=== PATIENT | female | born 1940 | race Caucasian/White ===

== ENCOUNTER 2018-11-24 04:15 | Inpatient (IN) ==
[2018-11-24] MEDS ORDERED: ALBUTEROL NEB INH ONE (04:50)
[2018-11-24] MEDS ORDERED: DUONEB (A & A) INH ONE (04:50)
[2018-11-24] MEDS ORDERED: LEVAQUIN 750 MG/D5W 750 MG/150 ML IVPB IV ONE (05:03)
[2018-11-24] MEDS ORDERED: ZOSYN 3.375 GM in NS 50 ML IV ONE (05:03)
[2018-11-24] MEDS ORDERED: TYLENOL PO ONE (05:04)
[2018-11-24] MEDS ORDERED: SOLU-MEDROL IV ONE (05:04)
[2018-11-24 05:21] LABS: BASO# 0.04 X1000 (0.0-0.2); BASO% 0.1 % (0.0-0.8); HEMATOCRIT 29.2 % (37.0-47.0); HEMOGLOBIN 9.7 g/dL (12.0-16.0); IMM GRAN# 0.29 X1000 (0.0-0.04); IMM GRAN% 1.1 % (0.0-0.5); LYMPH# 0.66 X1000 (1.2-3.4); LYMPH% 2.5 % (20.5-51.1); MCH 29.5 PG (27-31); MCHC 33.2 g/dL (33-37); MCV 88.8 FL (81-99); MONO# 1.01 X1000 (0.11-0.59); MONO% 3.8 % (1.7-9.3); MPV 11.3 FL (7.4-10.4); NEUT# 24.75 X1000 (1.4-6.5); NEUT% 92.5 % (42.2-75.2); PLT 304 X1000 (130-400); RBC 3.29 XMIL (4.2-5.4); RDW 16.8 % (11.5-14.5); WBC 26.75 X1000 (4.8-10.8)
[2018-11-24 05:25] LABS: BLOOD TYPE ARTERIAL; SAMPLE BLOOD
[2018-11-24 05:26] LABS: ALLEN TEST YES; BE -2.7 mmoll (-3.0-3.0); HCO3-(ACT) 22.8 mmoll (20.0-26.0); METHB 1.2 % (0.0-1.5); O2(CT) 13.4 mL/dL (15.0-23.0); O2HB 96.7 % (95.0-99.0); PCO2(98.6) 26 mmHg (35-45); PO2(98.6) 143 mmHg (60-100); SAO2 99.6 % (95.0-100.0); THB 9.6 g/dL (11.5-17.4); pH(98.6) 7.49 (7.35-7.45)
[2018-11-24 05:28] LABS: MODALITY CANNULA
[2018-11-24 05:30] LABS: INR 1.23; PROTIME 16.5 Seconds (11.0-16.0)
[2018-11-24 05:31] LABS: PTT 30.8 Seconds (22.3-41.8)
[2018-11-24 05:35] LABS: ALB/GLOB RATIO 0.7; ALBUMIN 3.2 g/dL (3.5-5.0); CALCIUM 9.6 mg/dL (8.8-10.2); CREATININE 2.3 mg/dL (0.5-0.9); POTASSIUM 4.9 mmol/L (3.5-5.1); TOTAL BILIRUBIN 0.55 mg/dL (0.20-1.00); TOTAL PROTEIN 7.5 g/dL (6.3-8.3)
--- NOTE | 2018-11-24 06:15 | Diag Imaging Result Doc PS360 ---
EXAM: CHEST-PORTABLE HISTORY: SOB TECHNIQUE: Portable chest single view COMPARISON: 08/17/2018 FINDINGS: The lungs are well expanded. There are dense infiltrates in the mid and lower right lung with smaller infiltrates in the left lower lung. The heart is not enlarged. No pleural effusions identified. Mild vascular distention. IMPRESSION: . Findings suspicious for pneumonia with pulmonary edema Electronically signed by Anuel Phillips 11/24/2018 6:12 AM
--- NOTE | 2018-11-24 07:26 | PROVIDER DOCUMENTATION ---
HPI-General Adult - General Chief Complaint: Shortness of Breath Stated Complaint: SOB/CHEST PAIN Time Seen by Provider: 11/24/18 04:26 Source: patient, family Allergies/Adverse Reactions: Patient Allergies Allergy/AdvReac Type Severity Reaction Status Date / Time codeine [Codeine] AdvReac Mild "MAKES ME Verified 11/24/18 05:08 HYPER" Home Medications: Home Medication List Medication Instructions Recorded Confirmed Last Taken Type Tiotropium Sevier Inhaler 1 puff INH RTDAILY 07/11/13 11/24/18 07/30/18 History [Spiriva] Benzonatate 1 cap PO Q6H PRN 06/25/18 11/24/18 Unknown History Fluticasone/Salmet 250/50 INH 1 puff INH BID 06/25/18 11/24/18 07/30/18 History [Advair 250/50 Diskus] Losartan/Hydrochlorothiazide 1 tab PO DAILY 06/25/18 11/24/18 07/29/18 History [Losartan-Hctz 100-25 mg Tab] Cholecalciferol (Vit D3) [Vitamin 2,000 unit PO DAILY 07/28/18 11/24/18 Unknown History D] Mv-Min/Iron/Folic/Calcium/Vitk 1 tab PO DAILY 07/28/18 11/24/18 07/29/18 History [Women's Daily Formula Tablet] Guaifenesin E.r. [Mucinex] 600 mg PO DAILY PRN PRN 11/24/18 11/24/18 Unknown History Ipratropium Sevier Inhaler 2 puff INH Q6H PRN PRN 11/24/18 11/24/18 Unknown History [Atrovent Hfa] Loratadine [Claritin] 10 mg PO DAILY 11/24/18 11/24/18 Unknown History Tizanidine [Zanaflex] 4 mg PO Q8HR 11/24/18 11/24/18 Unknown History Trazodone HCl 50 mg PO HS 11/24/18 11/24/18 Unknown History - History of Present Illness -Gen Adult Nature of Presenting Problems: Pt arrived in moderate respiratory distress after coughing and being short of breath x 2 days. Symptoms have gradually worsened. She states being around a sick family member over Mian. She has diffuse discomfort of her chest and back. No substernal CP. She states having fever yesterday, she guesses 102-103. She has had multiple bouts of pna in the past year. She states previously she had strep pna and has been hospitalized for this. She also states a history of bronchiectasis. She has used inhaled bronchodilators with no relief. Review of Systems - Adult - REVIEW OF SYSTEMS - ADULT Constitutional: reports: see HPI, chills, fever, fatique, night sweats Eyes: reports: no symptoms reported Ears, Nose, Mouth & Throat: reports: no symptoms reported Cardiovascular: reports: no symptoms reported Respiratory: reports: see HPI Gastrointestinal: reports: no symptoms reported, see HPI Genitourinary: reports: no symptoms reported Musculoskeletal: reports: no symptoms reported Integumentary: reports: no symptoms reported Neurological: reports: no symptoms reported Psychiatric: reports: no symptoms reported Endocrine: reports: no symptoms reported Hematologic/Lymphatic: reports: no symptoms reported Allergic/Immunologic: reports: no symptoms reported Past History - Adult - PAST MEDICAL HISTORY-ADULT Review of Records: reports: Old Records Reviewed, Nursing Assessment Review, Medications Reviewed Major Childhood Illnesses: reports: denies history Cardiovascular: reports: HTN Respiratory: reports: COPD, pneumonia, other (bronchiectasis) Gastrointestinal: reports: GERD Obstetrical/Gynecological: reports: denies history Genitourinary: reports: denies history Musculoskeletal: reports: denies history Neurological: reports: denies history Psychiatric: reports: denies history Endocrine/Immune: reports: denies history Other Conditions: reports: denies history - PRIOR SURGERIES/PROCEDURES Surgical/Procedure History: reports: reviewed, not pertinent, BTL - PRIOR HOSPITALIZATIONS Prior Hospitalizations: reports: none - IMMUNIZATION STATUS Childhood Immunizations: UTD Flu Vaccine: UTD - FAMILY HISTORY Family History: reviewed, not pertinent Physical Exam-General - PHYSICAL EXAM-ADULT Initial Vital Signs Reviewed: Yes - CONSTITUTIONAL General Appearance: alert, moderate distress, other (pale appearing.) - EYES Eyes: PERRL/EOMI - HEAD, EARS, NOSE, MOUTH & THROAT HENMT: normocephalic/atraumatic, moist mucous membranes, normal ENT inspection, pharynx normal - NECK Neck: non-tender, full range of motion, supple, normal inspection - RESPIRATORY Respiratory: respiratory distress (moderate with subcostal retractions. tachypeic. Diminished R.) - CARDIOVASCULAR Cardiovascular: normal peripheral pulses, no JVD, tachycardia Progress - PLAN OF CARE/RESULTS Progress/Plan/Lab Results: Vital Signs - 8 hr 11/24/18 04:19 11/24/18 04:57 11/24/18 05:32 Temperature 98.4 F Pulse Rate 125 H 122 H 122 H Respiratory Rate 24 26 H 33 H Blood Pressure 102/54 80/56 O2 Sat by Pulse Oximetry 87 L 97 97 11/24/18 05:33 11/24/18 05:34 11/24/18 05:40 Temperature Pulse Rate 110 H 119 H 115 H Respiratory Rate 33 H 34 H 27 H Blood Pressure 111/54 O2 Sat by Pulse Oximetry 97 97 97 11/24/18 05:50 11/24/18 06:00 11/24/18 06:01 Temperature Pulse Rate 118 H 114 H 114 H Respiratory Rate 27 H 30 H 33 H Blood Pressure 100/53 O2 Sat by Pulse Oximetry 98 97 96 11/24/18 06:10 Temperature Pulse Rate 108 H Respiratory Rate 31 H Blood Pressure O2 Sat by Pulse Oximetry 96 11/24/18 05:30 Influenza Screen - Final Nasopharyngeal Laboratory Results - last 24 hr 11/24/18 11/24/18 11/24/18 04:48 04:48 04:48 WBC 26.75 H RBC 3.29 L Hgb 9.7 L Hct 29.2 L MCV 88.8 MCH 29.5 MCHC 33.2 RDW Std Deviation 16.8 H Plt Count 304 MPV 11.3 H Immature Gran % (Auto) 1.1 H Neut % (Auto) 92.5 H Lymph % (Auto) 2.5 L [place] % (Auto) 3.8 Eos % (Auto) 0.0 Baso % (Auto) 0.1 Immature Gran # (Auto) 0.29 H Neut # (Auto) 24.75 H Lymph # (Auto) 0.66 L [place] # (Auto) 1.01 H Eos # (Auto) 0.00 Baso # (Auto) 0.04 PT INR PTT (Actin FS) Specimen Type Sample Site pH pCO2 pO2 HCO3 Base Excess Oxyhemoglobin ABG O2 Sat (Calculated) ABG O2 Saturation ABG Carboxyhemoglobin ABG Methemoglobin Ash Test A-a O2 Difference Total Hemoglobin Lactate Liter Flow Blood Gas Modality FiO2 % Sodium 135 L Potassium 4.9 Chloride 97 L Carbon Dioxide 20 L Anion Gap 18 BUN 67 H Creatinine 2.3 H Estimated GFR/1.73 m2 21 BUN/Creatinine Ratio 29 Glucose 127 H Calculated Osmolality 291 Calcium 9.6 Total Bilirubin 0.55 AST 19 ALT 16 Alkaline Phosphatase 91 Creatine Kinase 32 Troponin T Vpa-R-Uqozqwhlxvo Pept 17050 H Total Protein 7.5 Albumin 3.2 L Globulin 4.3 Albumin/Globulin Ratio 0.7 11/24/18 11/24/18 11/24/18 04:48 04:48 05:17 WBC RBC Hgb Hct MCV MCH MCHC RDW Std Deviation Plt Count MPV Immature Gran % (Auto) Neut % (Auto) Lymph % (Auto) [place] % (Auto) Eos % (Auto) Baso % (Auto) Immature Gran # (Auto) Neut # (Auto) Lymph # (Auto) [place] # (Auto) Eos # (Auto) Baso # (Auto) PT 16.5 H INR 1.23 PTT (Actin FS) 30.8 Specimen Type ARTERIAL Sample Site R RADIAL pH 7.49 H pCO2 26 L pO2 143 H HCO3 22.8 Base Excess -2.7 Oxyhemoglobin 96.7 ABG O2 Sat (Calculated) 13.4 L ABG O2 Saturation 99.6 ABG Carboxyhemoglobin 1.80 ABG Methemoglobin 1.2 Ash Test YES A-a O2 Difference 53.0 Total Hemoglobin 9.6 L Lactate 1.00 Liter Flow 4.0 Blood Gas Modality CANNULA FiO2 % 32.0 Sodium Potassium Chloride Carbon Dioxide Anion Gap BUN Creatinine Estimated GFR/1.73 m2 BUN/Creatinine Ratio Glucose Calculated Osmolality Calcium Total Bilirubin AST ALT Alkaline Phosphatase Creatine Kinase Troponin T 0.151 H Rwc-Y-Rguitdtevor Pept Total Protein Albumin Globulin Albumin/Globulin Ratio Orders Category Date Time Status Cardiac Monitoring DIRECTED Care 11/24/18 04:30 Active Oxygen Therapy- ED Nursing DIRECTED Care 11/24/18 04:30 Active Saline Loc NOW Care 11/24/18 04:30 Active CHEST-PORTABLE [RAD] Stat Exams 11/24/18 04:30 Completed ABG [RESP] Routine Lab 11/24/18 05:17 Completed BLOOD CULTURE [BLDCUL] Stat Lab 11/24/18 04:56 Results CBC WITH ELECTRONIC DIFF [HEME] Stat Lab 11/24/18 04:48 Completed CK PROFILE [SP CHEM] Stat Lab 11/24/18 04:48 Completed COMPREHENSIVE METABOLIC PANEL [CHEM] Stat Lab 11/24/18 04:48 Completed INFLUENZA SCREEN A/B Stat Lab 11/24/18 05:30 Completed LACTATE, PLASMA [CHEM] Stat Lab 11/24/18 04:48 Received PRO B-NATRIURETIC PEPTIDE Stat Lab 11/24/18 04:48 Completed PROTIME WITH INR [COAG] Stat Lab 11/24/18 04:48 Completed PTT [COAG] Stat Lab 11/24/18 04:48 Completed TROPONIN T Stat Lab 11/24/18 04:48 Completed Acetaminophen [Tylenol] Med 11/24/18 05:04 Discontinued 1,000 mg PO NOW ONE Albuterol 2.5MG/Ipratrop 0.5MG [Duoneb (A & A)] Med 11/24/18 04:50 Discontinued 3 ml INH NOW ONE Albuterol [Albuterol Neb] Med 11/24/18 04:50 Discontinued 2.5 mg INH NOW ONE Levofloxacin 750 mg/D5w [Levaquin 750 mg/D5w] Med 11/24/18 05:03 Discontinued 750 mg in 150 ml IV NOW Methylprednisolone Sod Succ [Solu-Medrol] Med 11/24/18 05:04 Discontinued 125 mg IV NOW ONE Piperacillin/Tazobactam [Zosyn] 3.375 gm Med 11/24/18 05:03 Discontinued 0.9% Sodium Chloride Inj [Ns] 50 ml IV NOW Aerosol Treatments Routine Oth 11/24/18 04:50 Completed Aerosol Treatments Stat Oth 11/24/18 04:50 Completed CP/SOB/Palp >45 yrs of Age Stat Oth 11/24/18 04:29 Ordered EKG [EKG] Stat Ther 11/24/18 04:30 Ordered Case discussed with Dr Galvin who will admit her. She has a large R infiltrate as well as pulmonary edema. Treated with Zosyn and Levaquin. Admitted to ICU to hospitalist service. Result Diagrams: 11/24/18 04:48 11/24/18 04:48 Departure - Departure Date of Disposition Decision: 11/24/18 Time of Disposition Decision: 06:10 DIAGNOSIS: Pneumonia Qualifiers: Pneumonia type: due to unspecified organism Laterality: bilateral Lung location : unspecified part of lung Qualified Code(s): J18.9 - Pneumonia, unspecified organism Pulmonary edema Qualifiers: Chronicity: acute Qualified Code(s): J81.0 - Acute pulmonary edema Disposition: ADMITTED INPATIENT 09 Certified Medical Emergency: Emergent Condition: Serious - Critical Care Note This patient required my direct & personal management of CC.: Yes Total Time (mins): 31 Critical Care Statement: This patient required my direct personal management to treat or rule out processes, the absence of which, could potentiallly result in sudden, clinically significant life or limb threatening deterioration. Attestation - Physician/ MYRA Attestation The physician spent face to face time with patient:: Yes Advanced Practice Provider documentation review:: Supervising physician onsite and consulted in the evaluation and care of this patient. The physician did have a face to face encounter with the patient.
[2018-11-24] MEDS ORDERED: TYLENOL PO PRN (08:19)
[2018-11-24] MEDS ORDERED: ZANAFLEX PO PRN (08:21)
[2018-11-24] MEDS ORDERED: MUCINEX PO PRN (08:21)
[2018-11-24] MEDS ORDERED: VANCOMYCIN IV PER PHARMACY MISC SCH (08:30)
--- NOTE | 2018-11-24 08:47 | Diag Imaging Result Doc PS360 ---
EXAM: CT THORAX W/O CONTRAST INDICATION: sob; pna TECHNIQUE: This exam was performed using automated exposure control, adjustment of mA or kV according to patient size, and/or use of iterative reconstruction technique. COMPARISON: 06/26/2018 FINDINGS: There is moderate to advanced pulmonary emphysema. There are extensive patchy airspace infiltrates throughout both lungs consistent with pneumonia. It is worst at the lung bases and at the inferior aspect of the right upper lobe. There is also subsegmental atelectasis at the lung bases. No significant pleural effusion is identified. There is no pneumothorax. There are calcified mediastinal and hilar lymph nodes indicating prior granulomatous disease. There are other shotty borderline and mildly prominent mediastinal and hilar lymph nodes that are noncalcified and are essentially stable. There are likely reactive. Limited views of the upper abdomen are essentially unremarkable. IMPRESSION: 1.Emphysema. 2.Bilateral multilobar pneumonia as described. 3.Other external/nonacute findings detailed above. Electronically signed by Michael Bridges 11/24/2018 8:45 AM
[2018-11-24] MEDS ORDERED: VITAMIN D PO SCH (09:00)
--- NOTE | 2018-11-24 09:43 | EKG Report ---
Test Performed on : 11/24/2018 04:29:56 AM Test Reason : SOB Blood Pressure : / mmHG Vent. Rate : 126 BPM Atrial Rate : 125 BPM P-R Int : 000 ms QRS Dur : 082 ms QT Int : 318 ms P-R-T Axes : 000 103 -77 degrees QTc Int : 460 ms Undetermined rhythm Rightward axis Low voltage QRS T wave abnormality, consider inferior ischemia Abnormal ECG When compared with ECG of 30-JUL-2018 10:36, Current undetermined rhythm precludes rhythm comparison, needs review Unconfirmed Result
[2018-11-24] MEDS ORDERED: LASIX IV ONE (09:46)
[2018-11-24 10:08] LABS: HEMOGLOBIN A1C 4.9 % (4.8-6.0)
[2018-11-24] MEDS: XOPENEX NEB INH SCH ×4 (11:05→23:06)
[2018-11-24] MEDS: ATROVENT NEB INH SCH ×4 (11:05→23:06)
[2018-11-24 11:09] LABS: IRON SATURATION 3 %; TIBC 248 ug/dL
[2018-11-24] MEDS: CENTRUM SILVER PO SCH (11:12)
[2018-11-24 11:30] LABS: URINE SOURCE CLEAN CATCH
--- NOTE | 2018-11-24 11:36 | HISTORY AND PHYSICAL ---
PRIMARY CARE PROVIDER: Dr. Kathrin Richards. PRIMARY SWIMMING POOL SERVICER: Dr. Ben Gallardo. PRIMARY ONCOLOGIST: Dr. Mode Zapata. PRIMARY SURFACER OPERATOR: Dr. Livia Morse. PRIMARY ETHYLBENZENE OXIDIZER: 1. Dr. Mark Allen out of [place]. 2. Dr. Kamar Colindres in [place]. CHIEF COMPLAINT: Shortness of breath, cough, chills. HISTORY OF PRESENT ILLNESS: Mrs. Debra Dillon is a 78-year-old, female , with a medical history of frequent pneumonia, COPD, chronic bronchiectasis, borderline multiple myeloma. Starting back in January 2018 she had strep pneumonia and since then she has had pneumonia four times. Today makes her first time for 2019. She presents with complaints of runny nose, fever, chills, cough with yellow phlegm, more fatigued and shortness of breath since Wednesday which was around four days. Last night she started having chest and back pain, but mostly in her back between her shoulders and worse with her coughing. She states that 5 or 6 days ago she was around someone who had been pretty sick with respiratory complaints. She now has imaging that shows she has multilobar pneumonia bilaterally with signs of cor pulmonale. She will be admitted to [facility]. We will consult Pulmonology. We will treat her pneumonia and bronchiectasis. PAST MEDICAL HISTORY: 1. COPD. No home oxygen. 2. Bronchiectasis diagnosed since June 2018. 3. CKD stage III. 4. Frequent pneumonia January 2018. Strep pneumonia with a total of four bouts of pneumonia in 2018. 5. Borderline multiple myeloma. 6. Anemia. 7. Hypertension. 8. Chronic tachycardia. 9. Cor pulmonale, chronic. 10.Hypertriglyceridemia. 11.Hypercholesterolemia. SURGICAL HISTORY: 1. Left wrist ORIF. 2. Left hip and tib/fib pins and rods. 3. Tubal ligation. 4. Bronchoscopy June [address] Allen. 5. EGD. SOCIAL HISTORY: She retired from [employer] or [employer] back in the year 1999. She quit smoking in the year 2000 but prior to that she smoked one pack per day since the age of 21. She drinks 102 glasses of white wine or Chardonnay every day and she has so for many years, even prior to alf. She denies any illicit drug use. She lives with her who is currently at the bedside and is very supportive. FAMILY HISTORY: Mother had asthma and Legionnaires' disease. She also had some sort of cancer, but was unsure of what type. Father, she had no idea. She did have an aunt on her father's side of family that she thinks had pancreatic cancer. ALLERGIES: Codeine. HOME MEDICATIONS: She states she takes Lasix 10 mg p.r.n. when her legs swelling. But that is not listed on her home medications. 1. Zanaflex 4 mg p.o. q.8 hours p.r.n. 2. Benzonatate 200 mg p.o. q.6 hours p.r.n. for cough. 3. Vitamin D3 2000 units p.o. daily. 4. Advair 250 5. Mucinex 600 mg p.o. daily p.r.n. 6. Atrovent two puffs inhaled q.6 hours p.r.n. 7. Losartan/hydrochlorothiazide 100/25 mg one tablet p.o. daily. 8. Multivitamin daily. 9. Spiriva inhaled daily. 10.Trazodone 50 mg p.o. at bedtime p.r.n. for sleep. REVIEW OF SYSTEMS: A 14 point review of systems are complete and negative except for those mentioned above in HPI. Positives are runny nose, subjective fever, chills, cough with yellow phlegm, chest and back pain between the shoulder blades worsened with cough. A 17 pound weight loss since January 2018. Decreased appetite. Shortness of breath. She denies any abdominal pain, nausea or vomiting. She states her bowel movements are normal. PHYSICAL EXAM: VITAL SIGNS: Temperature 98.4 degrees Fahrenheit, heart rate 107, respiratory rate 31, blood pressure 121/75. O2 saturation 98%-99% on 4 L. GENERAL: Mrs. Debra Dillon is a 78-year-old, female. She is in no acute distress. She is able to answers questions appropriately. HEENT: Atraumatic, normocephalic. Pupils are equal, round and reactive to light. Extraocular movements intact. Moist mucous membranes. NECK: Trachea is midline. CARDIOVASCULAR: S1, S2. Tachycardic rate and rhythm. No rubs, gallops or murmurs. No lower extremity edema. Plus-two dorsalis and radial pulses. Negative JVD or carotid bruits. PULMONARY: Coarse throughout. Worse on the right middle lobe area posteriorly. She is coarse anteriorly as well. No accessory muscle use. Mild work of breathing. Tolerating 4 L nasal cannula well. GASTROINTESTINAL: Soft, nontender, nondistended. Positive bowel sounds x4. EXTREMITIES: Moves all extremities equally with full range of motion. NEUROLOGIC: Alert and oriented x3. Follows commands. Sensory is intact. SKIN: Warm, dry, intact. LABORATORY DATA: White blood cells 26.0, hemoglobin 9, hematocrit 29, platelet count 304,000. INR is 1.23. ABG on 4 L nasal cannula pH of 7.49, pCO2 is 26, pO2 is 143, bicarb 22 , base access negative 2.7, saturation 97%. Lactate is 1.0. Sodium 135, potassium 4.9, BUN 67, creatinine 2.3, glucose 127, calcium 9.6. Bilirubin 0.55, AST 19, ALT 16. CK 41. Troponin x2 sets. First set 0.151. Second set 0.133. ProBNP 19,282. Albumin 3.2. Serum lactate 1.9. IMAGIN. Chest x-ray findings suspicious for pneumonia with pulmonary edema. 2. Chest CT. Emphysema, bilateral multilobar pneumonia. The pneumonia is worse in the lung bases and the inferior aspect of the right upper lobe. Calcified mediastinal and hilar lymph nodes indicating prior granulomatis disease. 3. EKG sinus tachycardia, rate 126, QTc 460 with occasional PVCs. No ST elevation. IMPRESSION AND PLAN: 1. Multilobar pneumonia with frequent bouts of pneumonia on top of bronchiectasis. She will be treated with vancomycin and Zosyn for now. Lactate is normal. She is tachycardic but she has history of chronic tachycardia. We will do pulmonary toilet. 2. Acute bronchiectasis. Continue with nebulizer. She will have low-dose steroids, Solu-Medrol 40 daily. she did get a one-time dose of [address] Colinders, her local patrol conductor, has been consulted. Titrate oxygen as needed. She is not on home O2. 3. Acute on chronic Cor pulmonale. ProBNP is significantly elevated with stress reaction troponin elevation. Currently, they appear to be down trending. She will receive a one-time dose of 60 mg of IV Lasix. We will repeat a proBNP in the morning. Her last echocardiogram was performed 06/25/2018 which revealed an ejection fraction that was normal at 60%-65%. Tachycardic at that time, which overestimate the systolic function. Mild MR. Showed pulmonary hypertension with a systolic pressure of 57 mmHg. We will trend cardiac enzymes. If they look like they are up trending, we will consult Cardiology. 4. Chronic tachycardia. Her blood pressure is low 100s. She has seen Dr. Gallardo as outpatient who stated she did not need a heart-rate lowering medication. 5. Hypertension. She was a little more on the hypotensive side when she first arrived, anywhere from 80s to 100s systolic, but she is now 120s. And she has some acute kidney injury as well, so we will hold off on her losartan/hydrochlorothiazide medication for now. 6. Chronic kidney disease stage III with acute kidney injury. Currently, we are just going to hold on any antihypertensives as she did appear with mildly lower blood pressures. We can order some urine studies and renal ultrasound if it has not been performed already. We will monitor her creatinine daily. She has received some Lasix while she is here. She will be receiving vancomycin and Zosyn as well, although they will be renally dosed and we are going to hold off on IV fluid hydration given the acute Cor pulmonale. 7. Borderline multiple myeloma with anemia. She is followed by Dr. Zapata for this. Hemoglobin and hematocrit are 9.7 and 29.2. She is currently what appears to be close to baseline. We will add some anemia labs. She denies any blood in the stools. Her last vitamin B12 was normal June 2018 at 383. Her folate was 15.1, which was also normal. We will check iron studies and ferritin. 8. Leukocytosis, likely all related to pneumonia but we will get a urinalysis. Blood cultures have already been obtained. Influenza is negative. Lactate is normal. So, I will follow up on her urinalysis. She is also going to be on steroids while she is here. 9. Hyperglycemia. Hemoglobin A1c is normal at 4.9. Blood sugar is 127. We will just monitor for now. 10.Hypertriglyceridemia and hypercholesterolemia. She is not on medications for this. Looks like back in 2012 she had triglycerides of 387 and total cholesterol of 238. We will just do a recheck of this. 11.Daily alcohol use. She drinks 1-2 glass of Chardonnay a day and has so for many many years. 12.Deep venous thrombosis prophylaxis. Heparin 5000 units twice daily. Dictated by ANDRES Amin for Corbin Armando MD cc: ANDRES Amin MD William D. Denney, MD James E. Boyle, MD Naveen T. Lobo, MD Jeanette Keith, MD Dr. Jason Smith agree with H and P as above. the following is my own face to face assessment and evaluation. Patient with pulmonary hypertension with right heart failure and COPD with numerous bouts of pneumonia over the last few years. presents with recurrent dyspnea and cough. cxr and BNP suggesting edema/cor pulmonale but CT looks more like pneumonia. lung exam with diffuse rhonchi worse on the right. will treat with antibiotics and monitor closely. MTDD
[2018-11-24 11:37] LABS: TOTAL IRON 8 ug/dL (49-151); UNBOUND IRON 240 ug/dL (112-346)
[2018-11-24 11:38] LABS: BILIRUBIN URINE NEGATIVE (NEGATIVE); BLOOD URINE TRACE (NEGATIVE); COLOR YELLOW; GLUCOSE URINE NEGATIVE (NEGATIVE); KETONE URINE NEGATIVE (NEGATIVE); LEUKOCYTES URINE NEGATIVE (NEGATIVE); NITRITE URINE NEGATIVE (NEGATIVE); PH URINE 5.5; PROTEIN URINE 200 mg/dL (NEGATIVE); SP GRAVITY URINE 1.011; TURBIDITY URINE HAZY (CLEAR); UROBILINOGEN URINE NORMAL (NORMAL)
[2018-11-24 11:42] LABS: UR EPITHELIAL CELLS <10 /HPF (<10); URINE BACTERIA NEGATIVE /HPF; URINE RBC <10 /HPF (<10); URINE WBC <10 /HPF (<10)
[2018-11-24 11:49] LABS: UR CREAT RANDOM 73.3 mg/dL (11-20)
[2018-11-24 11:59] LABS: URINE CASTS NONE SEEN; URINE CRYSTALS NONE SEEN; URINE YEAST NONE SEEN
[2018-11-24] MEDS ORDERED: SOLU-MEDROL IV SCH (13:00)
[2018-11-24] MEDS ORDERED: VANCOMYCIN 1.3 GM in NS 250 ML IV ONE (13:00)
[2018-11-24] MEDS: ZOSYN 2.25 GM in NS 50 ML IV SCH ×2 (14:04→22:49)
--- NOTE | 2018-11-24 14:38 | Diag Imaging Result Doc PS360 ---
EXAM: US RENAL 2 (RETROPER) COMPLETE HISTORY: gopi; ckd TECHNIQUE: Renal ultrasound COMPARISON: 07/11/2013 FINDINGS: The right kidney measures 11.6 x 4.6 x 4.1 cm. There is increased renal echotexture with mild cortical thinning. No stone or hydronephrosis. No solid renal mass. The left kidney measures 11.0 x 4.8 x 5.7 cm. There is increased renal echotexture and cortical thinning. No renal stone or hydronephrosis. No renal mass. The urinary bladder is moderately distended. IMPRESSION: Increased renal echotexture with cortical thinning which can be seen with medical renal disease. Electronically signed by Anuel Phillips 11/24/2018 2:36 PM
[2018-11-24 16:02] LABS: FREE T4 1.39 ng/dL (0.93-1.70); TSH 1.15 uIUmL (0.27-4.20)
[2018-11-24] MEDS: PULMICORT INH SCH (19:30)
[2018-11-24] MEDS ORDERED: DESYREL PO SCH (21:00)
[2018-11-24] MEDS: DESYREL PO PRN (22:49)
[2018-11-24] MEDS: HEPARIN SUBQ SCH (22:49)
[2018-11-25] MEDS: XOPENEX NEB INH SCH ×6 (03:40→23:23)
[2018-11-25] MEDS: ATROVENT NEB INH SCH ×6 (03:40→23:23)
[2018-11-25] MEDS: ZOSYN 2.25 GM in NS 50 ML IV SCH (04:26)
--- NOTE | 2018-11-25 05:43 | CONSULTATION ---
DATE OF CONSULTATION: 11/24/2018 REQUESTING PROVIDER: ANDRES Amin REASON FOR CONSULTATION: Acute bronchiectasis, acute cor pulmonale and pneumonia. HISTORY OF PRESENT ILLNESS: This is a 78-year-old female with a medical history of COPD, bronchiectasis, hypertension, gastroesophageal reflux, chronic kidney disease stage 3, borderline multiple myeloma with anemia, chronic tachycardia, cor pulmonale, recurrent pneumonia, hypertriglyceridemia, and hypercholesterolemia. She presented to the ER today with worsening coughing and shortness of breath for two days. A chest x-ray reveals findings suspicious for pneumonia with pulmonary edema. Chest CT without contrast reveals moderate to advanced pulmonary emphysema, bilateral multilobar pneumonia, subsegmental atelectasis at the lung bases, and calcified mediastinal and hilar lymph knots indicating previous granulomatous disease. Lab reveals leukocytosis, elevated troponin T, and proBNP of 19,282. She has been admitted for further evaluation and management. At the time of my exam, the patient states she is feeling a little bit better after receiving IV antibiotics. She reports runny nose, fever , productive cough with yellow phlegm, shortness of breath with activities and generalized weakness. She reports previous pedal edema, but not today. She denies headache, chest pain, chest pressure, or chest tightness. PAST MEDICAL HISTORY: 1. COPD, moderate per patient's report. 2. Bronchiectasis, diagnosed since June 2018. 3. Hypertension. 4. Gastroesophageal reflux disease. 5. Chronic kidney disease, stage 3. 6. Borderline multiple myeloma with anemia. 7. Chronic tachycardia. 8. Cor pulmonale. 9. Recurrent pneumonia, having 6 ER visits in 2018 with pneumonia. 10. Hypertriglyceridemia. 11. Hypercholesterolemia. PAST SURGICAL HISTORY: 1. Left wrist ORIF. 2. Left hip and tib or fib pins and rods. 3. Tubal ligation. 4. Bronchoscopy in June [address] Allen. 5. EGD in June 2018. 6. Bone marrow biopsy on 08/02/2018. SOCIAL HISTORY: The patient lives at home with her , who is very supportive. She an over [id number] history of tobacco use and quit 14 to 15 years ago. She drinks 2 glasses of wine daily for many years. She reports no history of illicit drug use. FAMILY HISTORY: Positive for asthma and cancer. ALLERGIES: Codeine. REVIEW OF SYSTEMS: A 10-point review of systems was conducted and the pertinent is listed within the HPI, otherwise noncontributory. PHYSICAL EXAMINATION: Vital Signs: Blood pressure 92/66, pulse 116, respiratory rate 28, oxygen saturation 99% on nasal cannula at 4 L. General: The patient is thin with a barrel chest. No acute respiratory distress. HEENT: Atraumatic. Trachea midline. Mucosa pink and slightly dry. Respiratory: Air entry bilaterally equal. Coarse breathing sounds noted throughout all lung joseph with diminished breathing sounds bilaterally in the lower lobes. Cardiovascular: Sinus tachycardia with regular rate and rhythm, without murmur or gallop. (Patient reports her lowest resting pulse rate is 90s). Gastrointestinal: Soft, nontender, nondistended. Normoactive bowel sounds in all 4 quadrants. Extremities: No pedal edema. No cyanosis. No clubbing. Neurologic: Alert and oriented x3. Generalized weakness. LABORATORY DATA: White blood cells 26.75, hemoglobin 9.7, hematocrit 29.2, platelets 304,000. Sodium 135, potassium 4.9, chloride 97, carbon dioxide 20, BUN 67, creatinine 2.3, glucose 127. ProBNP is 19,282. Troponin 0.151. ABG: pH 7.49, pCO2 26, PO2 143, HC03 22.8, base excess -2.7, and oxyhemoglobin 96.78. IMAGING DATA: See HPI. ASSESSMENT: This is a 78-year-old female with a medical history of chronic obstructive pulmonary disease, bronchiectasis, hypertension, gastroesophageal reflux disease , chronic kidney disease stage 3, borderline multiple myeloma with anemia, chronic tachycardia, cor pulmonale, recurrent pneumonia, hypertriglyceridemia, and hypercholesterolemia, who has been admitted with multilobar pneumonia, acute bronchiectasis, and acute on chronic cor pulmonale. 1. Multilobar pneumonia. 2. Acute bronchiectasis. 3. Acute on chronic cor pulmonale. 4. Acute kidney injury on chronic kidney disease stage 3. PLAN: 1. Continue antibiotics, steroids, and bronchodilators as prescribed. 2. Continue supplemental oxygen. 3. Routine ABG, CBC, CMP, proBNP, and chest x-ray. 4. Consider diuretics if needed. 5. Continue troponin T and creatine kinase q.8 hours as prescribed[address] 6. Dr. Bryan, repair operator, is consulted. 7. Continue GI and DVT prophylaxis. Thank you for the courtesy of this consult. Examined and Evaluated by My self, Dr. Amos 15-30+ (>30 min.) Dictated by ANDRES Dominguez for Lauren Amos MD cc: ANDRES Dominguez MD [facility]
[2018-11-25 05:46] LABS: BASO# 0.01 X1000 (0.0-0.2); HEMOGLOBIN 8.6 g/dL (12.0-16.0); IMM GRAN# 0.07 X1000 (0.0-0.04); IMM GRAN% 0.3 % (0.0-0.5); LYMPH# 0.55 X1000 (1.2-3.4); LYMPH% 2.7 % (20.5-51.1); MCHC 33.1 g/dL (33-37); MCV 87.5 FL (81-99); MONO% 3.4 % (1.7-9.3); MPV 11.1 FL (7.4-10.4); NEUT# 18.98 X1000 (1.4-6.5); NEUT% 93.6 % (42.2-75.2); PLT 276 X1000 (130-400); RBC 2.97 XMIL (4.2-5.4); RDW 16.4 % (11.5-14.5); WBC 20.31 X1000 (4.8-10.8)
[2018-11-25 05:50] LABS: ALB/GLOB RATIO 0.7; ALBUMIN 2.6 g/dL (3.5-5.0); CALCIUM 9.3 mg/dL (8.8-10.2); CREATININE 2.3 mg/dL (0.5-0.9); POTASSIUM 3.5 mmol/L (3.5-5.1); TOTAL BILIRUBIN 0.26 mg/dL (0.20-1.00); TOTAL PROTEIN 6.4 g/dL (6.3-8.3)
[2018-11-25 05:51] LABS: LYMPHS 24 % (21-51); MONO 8 % (1-9); SEGS 68 % (42-75)
--- NOTE | 2018-11-25 06:54 | Diag Imaging Result Doc PS360 ---
EXAM: CHEST-PORTABLE HISTORY: Pneumonia TECHNIQUE: Portable chest single view COMPARISON: 11/24/2018 FINDINGS: The lungs are well expanded. The heart is borderline mildly prominent. Vascular distention persists. There are bilateral infiltrates. These are less dense and less pronounced in the mid right lung on the current study. Questionable trace pleural fluid. IMPRESSION: Mild interval improvement. Electronically signed by Anuel Phillips 11/25/2018 6:52 AM
[2018-11-25] MEDS: PULMICORT INH SCH ×2 (07:34→19:25)
[2018-11-25] MEDS: SOLU-MEDROL IV SCH (08:21)
[2018-11-25] MEDS: VITAMIN D PO SCH (08:21)
[2018-11-25] MEDS: HEPARIN SUBQ SCH ×3 (08:21→20:30)
[2018-11-25] MEDS: ZYVOX 600 MG/D5W 600 MG/300 ML IVPB IV SCH ×2 (08:21→20:29)
[2018-11-25] MEDS: ROCEPHIN 1 GM in NS 50 ML IV SCH ×3 (08:21→20:30)
[2018-11-25] MEDS: CENTRUM SILVER PO SCH (08:21)
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
--- NOTE | 2018-11-25 09:29 | EKG Report ---
Test Performed on : 11/25/2018 09:21:43 AM Test Reason : SVT Blood Pressure : / mmHG Vent. Rate : 111 BPM Atrial Rate : 111 BPM P-R Int : 184 ms QRS Dur : 092 ms QT Int : 344 ms P-R-T Axes : 072 097 -81 degrees QTc Int : 467 ms Sinus tachycardia. with premature supraventricular complexes. Rightward axis Low voltage QRS ST & T wave abnormality, consider inferior ischemia Abnormal ECG When compared with ECG of 24-NOV-2018 04:29, (Unconfirmed) low voltage and axis are old, PVCs no longer seen. Confirmed by Anastasiya HERNANDEZ, Avelino Heredia ([id number]) on 11/26/2018 8:39:39 AM
--- NOTE | 2018-11-25 11:05 | NEPHROLOGY CONSULTATION ---
DATE: 11/25/2018 REASON FOR CONSULTATION: Acute kidney injury. HISTORY OF PRESENT ILLNESS: Ms. Dillon is a 78-year-old white female with history of bronchiectasis and recurrent pneumonias. She has a history of MGUS as well as COPD, cor pulmonale, hyperlipidemia, etc. She is aware of chronic kidney disease, and Dr. Richards has been frequently measuring her labs. Creatinine has ranged between 1.1 and 1.5 over the last several months. She has been told about proteinuria as well, but has never required referral. In this context, she has been taking an antibiotic at home in an attempt to suppress recurrent pneumonias. She does not know the name of it, and it is not listed on her admission medications. At any rate, she returned to the hospital because of worsening shortness of breath and chills. Her evaluation suggested multilobar pneumonia as well as emphysema, and she was admitted and started back on antibiotics, pulmonary toilet, etc. In this context, her creatinine was 2.3 on presentation, and remains that this morning. She does admit that she has been taking in less, and her appetite has been low. No nausea, vomiting, or diarrhea. No other new medications. PAST MEDICAL HISTORY: As above. HOME MEDICATIONS: Spiriva, losartan, hydrochlorothiazide, benzonatate, fluticasone, multivitamin, cholecalciferol, tizanidine, trazodone, loratadine, ipratropium, guaifenesin. ALLERGIES: Codeine. SOCIAL HISTORY: Former smoker. None currently. She is retired from [employer] [place] She drinks 1 to 2 glasses of wine daily. She is , lives with her . FAMILY HISTORY: Otherwise noncontributory. REVIEW OF SYSTEMS: Otherwise noncontributory. PHYSICAL EXAMINATION: Vital Signs: Blood pressure 122/62, heart rate 102, respiration 18, afebrile. General: Elderly, chronically ill woman in no acute distress. Skin: Warm and dry. HEENT: Conjunctivae are pink. Pupils are equal. Oropharynx is clear. Tongue is normal. Dentition normal. Neck: Supple. Neck vein distention is visible with hepatojugular reflux. Heart: PMI is nondisplaced. Regular rate and rhythm. No murmurs, rubs, or gallops. Lungs: Have few scattered wheezes, no crackles. Abdomen: Soft, nontender. Bowel sounds present. Extremities: Have no edema, clubbing, or cyanosis. IMPRESSION AND PLAN: Acute kidney injury, overlying chronic kidney disease. Likely intravascular volume depletion in the context of angiotensin-receptor laisha therapy. This medication has been appropriately withheld. I asked her to orally hydrate over the next 24 hours, and we will remeasure her labs tomorrow. I will collect a 24 hour urine to quantify her renal function and urine protein excretion. I have reviewed her medications, and no other changes are required. cc: Porter Bryan MD
--- NOTE | 2018-11-25 11:42 | CARDIOLOGY CONSULTATION ---
DATE: 11/25/2018 REASON FOR CONSULTATION: Ms. Dillon is a 78-year-old lady. Cardiology was consulted for abnormal cardiac enzymes. HISTORY OF PRESENT ILLNESS: She has multiple medical problems including COPD, cor pulmonale, hypertension, renal insufficiency. She is admitted with complaints of fever, runny nose, cough with [id number] expectoration associated with cough and some chest discomfort. She has multilobar pneumonia and bronchiectasis. She is on vancomycin and Zosyn. Cardiac enzymes revealed abnormal troponin of 0.15, 0.13, and 0.11 with normal CKs. ProBNP was elevated at 23,000. Sodium was 136, potassium 3.5, BUN 76, creatinine 2.3, WBC 20.31. Hemoglobin 8.6, hematocrit 26, platelet count of 276. The patient has been seen in our office. Has history of having had diastolic heart failure. Has severe COPD, hypertension, and chronic kidney disease. REVIEW OF SYSTEMS: GI: There is no history of nausea, vomiting, or diarrhea. There is no history of hematemesis or melena. Central nervous system: No focal weakness to suggest a CVA or TIA. Genitourinary: There is no dysuria or hematuria. PAST MEDICAL HISTORY: 1. History of chronic renal insufficiency. 2. Hypertension. 3. Multiple myeloma. 4. COPD. 5. Cor pulmonale. 6. Hypertension. 7. Diastolic heart failure. 8. Venous insufficiency. 9. Hyperlipidemia. PAST SURGICAL HISTORY: Left hip and tib-fib pins and rods, tubal ligation, bronchoscopy in 2018, upper GI endoscopy in the past. SOCIAL HISTORY: She is retired from [employer] [place], [employer] in [employer] back in the year 1999. She quit smoking 2000. Prior to that, had smoked since the age of 21. HOME MEDICATIONS: Zanaflex, benzonatate, Advair, Mucinex, Atrovent, losartan/HCTZ, Spiriva, trazodone. In the hospital, she is on vancomycin and Zosyn. ALLERGIES: She is allergic to codeine. PHYSICAL EXAMINATION: Vital Signs: Blood pressure 122/62, heart rate was 100, temperature afebrile. Heart: First and second heart sounds were heard. Lungs: There was decreased breath sounds on auscultation with crepitations, left more than the right. Abdomen: Soft, nontender. There was no guarding or rigidity. Bowel sounds were heard. Central nervous system: Alert and oriented. Was moving all 4 extremities. Extremities: Examination of extremities revealed no pedal edema. HEENT: Atraumatic, normocephalic. Pupils were equal and reacting to light. ELECTROCARDIOGRAM: Revealed sinus tachycardia. ASSESSMENT AND PLAN: Ms. Debra Dillon is a 78-year-old lady with history of chronic obstructive pulmonary disease, multiple myeloma, hypertension, chronic renal insufficiency, frequent pneumonia is admitted with cough, fevers, some mucopurulent expectoration, and she has multilobar pneumonia with bronchiectasis, on vancomycin and Zosyn. From a cardiac standpoint, her abnormal troponin is multifactorial likely to be related to chronic kidney disease as well. She does not complain of chest pain suggestive of angina. She has had persistent tachycardia for many years and probably is made worse with her current lung status as well. Her last echocardiogram in June revealed an ejection fraction was normal. There was no significant valvular abnormalities, with pulmonary artery systolic pressure of 57 mmHg. There is no pericardial effusion. RECOMMENDATIONS: 1. From a cardiac standpoint, I have not made any changes to her medication. She has tachycardia. I am not adding any medications for the same. This is probably multifactorial. 2. History of hypertension blood pressure is under control. Would recommend continue current medications. Thank you for the consult. cc: Moises Bond MD
--- NOTE | 2018-11-25 15:12 | PROGRESS NOTE ---
DATE: 11/25/2018 INTERVAL HISTORY: The patient reports significant improvement in her dyspnea. Still with some cough, which is largely nonproductive. No fever, chills, chest pain. The initial blood cultures became positive with gram-positive cocci with final speciation and sensitivities still pending. Remains slightly tachycardic, but afebrile overnight. No new complaints. No other acute events. REVIEW OF SYSTEMS: Twelve point review of systems negative, except as per interval history. LABS: White count 20.3, hemoglobin 8.6, hematocrit 26.0, platelets 276, neutrophil percentage 93.6. Sodium 136, potassium 3.5, chloride 96, bicarbonate 21. BUN 76, creatinine 2.3, glucose 134. Troponin 0.15, then 0.13, then 0.11. BNP 23,000, albumin 2.6, total protein 6.4. Urinalysis unremarkable aside from some proteinuria. Initial blood culture significant for gram- positive cocci. IMAGING: Chest x-ray with mild improvement in bilateral infiltrates. PHYSICAL EXAMINATION: Vital Signs: T-max 98.4 degrees, pulse 106, respirations 18, blood pressure 121/62, O2 saturation 99% on 3 L by nasal cannula. General: On physical examination, no acute distress. Vitals as above. HEENT: Normocephalic, atraumatic. Moist mucous membranes. Neck: No cervical adenopathy. Cardiovascular: Slightly tachycardic, but regular. No murmurs, rubs, or gallops noted. Pulmonary: Bibasilar crackles, somewhat improved. Still some scattered rhonchi, but good air entry and no wheezing currently. Abdomen: Soft, nontender, nondistended. Bowel sounds positive. Extremities: Peripheral pulses intact. No clubbing or cyanosis. Neurologic: Cranial nerves 2-12 grossly intact. No focal motor or sensory deficits. Psychiatric: Normal mood and affect. Awake, alert, oriented x3. Skin: No new rashes or lesions noted. ASSESSMENT AND PLAN: 1. Multi lobar pneumonia: Patient with numerous bouts of pneumonia over the last 1 to 2 years. Technically outside the range for this to be healthcare-associated pneumonia, but given numerous previous infections and high risk for resistant organisms we are treating her with vancomycin and Zosyn. Lactate normal. Still mildly tachycardic, but this has been a chronic issue. Pulmonology consulted at the patient's request. A dose of Lasix given initially, but given acute kidney injury on chronic kidney disease, we will hold any further diuresis. Nephrology consult and following. 2. Pulmonary hypertension likely acute on chronic cor pulmonale. Group B natriuretic peptide on admission significantly elevated compared to previous. Initial chest x-ray concerning for acute pulmonary edema, but CT appears to be more multifocal pneumonia than fluid related. Given initial dose of Lasix on presentation to the emergency department, holding off on further diuresis given kidney dysfunction. Monitor closely. 3. Hypertension. The patient is hypertensive by history, but has been largely normotensive here. Holding home losartan and hydrochlorothiazide. We will consider restarting. Will continue to monitor blood pressure. 4. Acute kidney injury on chronic kidney disease stage III. Holding antihypertensives as above. Nephrology following and recommends gentle hydration. Monitor closely. 5. 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 Patient told that she has "borderline multiple myeloma." Patient followed by Dr. Zapata. No records to clearly define this available, but suspect she has monoclonal gammopathy of undetermined significance (MGUS). 6. Chronic anemia with very slight downtrend, but similar to what she has had previously. Continue to monitor. 7. Hyperglycemia. A1c normal at 4.9, blood sugar only mildly elevated. Likely steroid-related hyperglycemia. No need for acute intervention at this time. 8. Hyperlipidemia. Patient with hypertriglyceridemia by history, but recheck here essentially normal. No need for acute intervention at this time. 9. Deep vein thrombosis prophylaxis. Heparin. 10. Elevated troponin. Patient with mildly, but consistently elevated troponin with only slight downtrend. Cardiology is to evaluate and favor demand ischemia/type 2 myocardial infarction. Monitor cardiac status, but no need for acute intervention at this time.
[2018-11-26] MEDS: DESYREL PO PRN (00:08)
[2018-11-26] MEDS: ATROVENT NEB INH SCH ×6 (03:25→22:46)
[2018-11-26] MEDS: XOPENEX NEB INH SCH ×6 (03:25→22:46)
[2018-11-26 06:08] LABS: HEMATOCRIT 24.6 % (37.0-47.0); HEMOGLOBIN 8.1 g/dL (12.0-16.0); MCH 28.9 PG (27-31); MCHC 32.9 g/dL (33-37); MCV 87.9 FL (81-99); MPV 11.2 FL (7.4-10.4); RBC 2.8 XMIL (4.2-5.4); WBC 12.35 X1000 (4.8-10.8)
[2018-11-26 06:31] LABS: ALBUMIN 2.7 g/dL (3.5-5.0); CALCIUM 8.9 mg/dL (8.8-10.2); CREATININE 2.2 mg/dL (0.5-0.9); POTASSIUM 3.6 mmol/L (3.5-5.1)
[2018-11-26] MEDS: PULMICORT INH SCH ×2 (07:48→19:17)
[2018-11-26] MEDS: ROCEPHIN 1 GM in NS 50 ML IV SCH ×2 (08:33→20:47)
[2018-11-26] MEDS: HEPARIN SUBQ SCH ×2 (08:33→20:47)
[2018-11-26] MEDS: VITAMIN D PO SCH (08:33)
[2018-11-26] MEDS: SOLU-MEDROL IV SCH (08:33)
[2018-11-26] MEDS: CENTRUM SILVER PO SCH (08:33)
[2018-11-26] MEDS: ZYVOX 600 MG/D5W 600 MG/300 ML IVPB IV SCH ×2 (08:33→21:28)
--- NOTE | 2018-11-26 11:23 | PROGRESS NOTE ---
DATE: 11/26/2018 SUBJECTIVE: This patient states that she is feeling better, she is still coughing and getting phlegm on and off, greenish phlegm. She denies any fever or chills. She feels better. We will continue with the same management, breathing treatment, antibiotics. Kidney function about the same but it seems like the urine output is better. She is tolerating p.o. We will continue to monitor. OBJECTIVE: Vital Signs: Temperature 98.1 degrees, pulse 71, respiratory rate 15, blood pressure 115/57. Oxygen saturation 98 on 2 L of nasal cannula. HEENT: Head normocephalic. No trauma. PERRLA. Neck: Supple. No JVD. No masses. Central trachea. Chest: Coarse breath sounds bilaterally, with scattered rhonchi, mostly at the bases. No wheezing. Abdomen: Soft, nontender, nondistended. No hepatosplenomegaly. Extremities: No edema. No clubbing. No cyanosis. Decreased muscle mass. Neurologic: The patient is alert and oriented x3. No focal neurological deficits. LABORATORY: WBC 12.3, hemoglobin 8.1, hematocrit 24.6, platelets 340,000. Sodium 131, potassium 3.6, chloride 94, bicarbonate 23, BUN 8, creatinine 2.2, glucose 123. Calcium 8.9. ASSESSMENT AND PLAN: 1. Multilobar pneumonia. Continue with antibiotics, breathing treatment, pulmonary toilet, oxygen supplementation. Infectious Disease Department following this patient as well as Pulmonary Department. We will monitor. 2. Pulmonary hypertension. She is breathing better, and likely she had an acute on chronic cor pulmonale, but CT appears to be more multifocal pneumonia than fluid related. 3. Hypertension. She has been normotensive without treatment. We will continue to monitor for now. 4. Acute on chronic kidney disease. We held already, the antihypertensive medication and we will avoid nephrotoxic medication. Nephrology department on board. We are getting the urine for 24 hours. 5. Apparently borderline multiple myeloma, followed by Dr. Zapata. 6. Chronic anemia. We will monitor. 7. Hyperglycemia. Hemoglobin A1c is 4.9, which is normal. Her blood sugar is a little bit elevated and probably this is related to steroids which I will decrease from 40 IV daily to 20 IV daily and then probably I will switch it to p.o. She seems to be getting better. 8. Hyperlipidemia. Continue to monitor. 9. Deep vein thrombosis prophylaxis with heparin every 12 hours given her kidney injury. 10. Elevated troponins, likely due to demand ischemia. Cardiology on board. I do not think she is having any kind of acute coronary syndrome. cc: Jamie Hebert MD
[2018-11-26 13:11] LABS: CREATININE 2.2 mg/dL (0.7-1.2)
[2018-11-26 13:22] LABS: UR CREATININE 42.2 mg/dL (11-20); UR CREATININE TOTAL 590.8 mg/24 (600-1600); UR PROTEIN 37.6 mg/dL
[2018-11-26] MEDS ORDERED: VENOFER 200 MG in NS 150 ML IV SCH (13:30)
--- NOTE | 2018-11-26 14:51 | NEPHROLOGY PROGRESS NOTE ---
DATE: 11/26/2018 SUBJECTIVE: She states she is feeling better today. Still coughing. No sputum. OBJECTIVE: Vital Signs: Blood pressure 123/66, heart rate 105, respiration 18, afebrile. General: No acute distress. Skin is warm and dry. Conjunctivae are pink. Neck veins are not distended. Heart is regular. No gallops. Lungs are equal with rhonchi. No wheezes. Abdomen soft, nontender. Bowel sounds are present. Extremities: No edema, clubbing or cyanosis. IMPRESSION: Acute kidney injury overlying chronic kidney disease. Her labs have been roughly stable over the last several days. Her renal ultrasound performed on 11/24/2018 showed normal overall kidney sizes but increased echotexture and cortical thinning. 24-hour urine is in process. Electrolytes and acid-base are in target. cc: Porter Bryan MD
[2018-11-27] MEDS ORDERED: VANCOMYCIN 1 GM/NS 1 GM/250 ML IVPB IV SCH (01:00)
[2018-11-27] MEDS: XOPENEX NEB INH SCH ×6 (03:32→22:35)
[2018-11-27] MEDS: ATROVENT NEB INH SCH ×6 (03:32→22:35)
[2018-11-27 06:54] LABS: HEMOGLOBIN 8.9 g/dL (12.0-16.0); MCH 29.1 PG (27-31); MCV 88.2 FL (81-99); MPV 10.3 FL (7.4-10.4); RBC 3.06 XMIL (4.2-5.4); RDW 16.3 % (11.5-14.5); WBC 10.59 X1000 (4.8-10.8)
[2018-11-27 07:33] LABS: ALBUMIN 3.1 g/dL (3.5-5.0); CREATININE 1.8 mg/dL (0.5-0.9); PHOSPHORUS 4.2 mg/dL (2.7-4.5)
[2018-11-27 08:11] LABS: POTASSIUM 4.2 mmol/L (3.5-5.1)
[2018-11-27] MEDS: PULMICORT INH SCH ×2 (08:21→19:36)
[2018-11-27] MEDS: ZYVOX 600 MG/D5W 600 MG/300 ML IVPB IV SCH (08:38)
[2018-11-27] MEDS: VITAMIN D PO SCH (08:39)
[2018-11-27] MEDS: CENTRUM SILVER PO SCH (08:39)
[2018-11-27] MEDS: ROCEPHIN 1 GM in NS 50 ML IV SCH ×2 (08:39→23:23)
[2018-11-27] MEDS: HEPARIN SUBQ SCH ×2 (08:39→23:23)
[2018-11-27] MEDS ORDERED: SOLU-MEDROL IV SCH (09:00)
--- NOTE | 2018-11-27 12:21 | PROGRESS NOTE ---
DATE: 11/27/2018 SUBJECTIVE: The patient is feeling better. She is still coughing with on and off greenish phlegm production. She denies any fever or chills. She feels better. I will continue with the same management for now. Kidney function improving. OBJECTIVE: Vital Signs: Temperature 97.7 degrees, pulse 106 respiratory rate 18, blood pressure 135/74, oxygen saturation 100% on room air. HEENT: Head normocephalic. No trauma. PERRLA. Neck: Supple. No JVD. No masses. Central trachea. Chest: Coarse breath sounds bilaterally with some scattered rhonchi mostly at the bases and crepitus. No wheezing. Abdomen: Soft, nontender, nondistended. No hepatosplenomegaly. Extremities: No edema. No clubbing. No cyanosis. Decreased muscle mass. Neurological: The patient is alert and oriented x3. No focal neurological deficits. LABORATORY: WBC 10.5, hemoglobin 8.9, hematocrit 27, platelets 377,000. Sodium 136, potassium 4.2, chloride 98, bicarbonate 23, BUN 66, creatinine 1.8, glucose 103, calcium 9. ASSESSMENT AND PLAN: 1. Multilobar pneumonia. Continue with antibiotics, breathing treatment, pulmonary toilet, she is no longer using oxygen and the oxygen saturation has been stable. Infectious Disease Department following this patient, as well as Pulmonary Department. We will monitor. 2. Pulmonary hypertension, she is breathing better. Likely she has an acute on chronic cor pulmonale, but CT scan showed multiple pneumonia than a fluid related issue. 3. Hypertension. She is normotensive without treatment. Continue to monitor for now. 4. Acute on chronic kidney disease. We will avoid nephrotoxic medications. This is getting better. Nephrology Department on board. 5. Apparently borderline multiple myeloma, followed by Dr. Zapata. 6. Chronic anemia. We will monitor. 7. Hyperglycemia. Hemoglobin A1c 4.9, which is normal. Blood sugar is a little bit elevated and likely related to steroids. Today he her blood sugar is normal though after decreasing the dose of the steroids. 8. Hyperlipidemia. Continue to monitor. 9. Deep vein thrombosis prophylaxis with heparin every 12 hours given her kidney injury. 10. Elevated troponin likely due to demand ischemia. Cardiology already evaluated this patient. She is not having any kind of acute coronary syndrome. cc: Jamie Hebert MD [facility]
[2018-11-27] MEDS: DESYREL PO PRN (23:31)
[2018-11-28] MEDS: ZYVOX 600 MG/D5W 600 MG/300 ML IVPB IV SCH ×2 (00:16→09:42)
[2018-11-28] MEDS: XOPENEX NEB INH SCH ×6 (02:52→22:55)
[2018-11-28] MEDS: ATROVENT NEB INH SCH ×6 (02:52→22:55)
--- NOTE | 2018-11-28 06:15 | Diag Imaging Result Doc PS360 ---
EXAM: CHEST-1 VIEW HISTORY: SOB TECHNIQUE: Portable chest single view COMPARISON: 11/25/2018 FINDINGS: The lungs are well expanded except for minimal atelectasis or scarring in the left base. The infiltrate in the mid right lung is less dense on the current study. No cardiomegaly. Questionable trace left pleural fluid. IMPRESSION: Interval improvement in the right infiltrate. Electronically signed by Anuel Phillips 11/28/2018 6:13 AM
[2018-11-28 07:07] LABS: HEMATOCRIT 29.5 % (37.0-47.0); HEMOGLOBIN 9.6 g/dL (12.0-16.0); MCH 28.8 PG (27-31); MCHC 32.5 g/dL (33-37); MCV 88.6 FL (81-99); MPV 10.4 FL (7.4-10.4); RBC 3.33 XMIL (4.2-5.4); RDW 16.7 % (11.5-14.5); WBC 13.04 X1000 (4.8-10.8)
[2018-11-28 08:09] LABS: CALCIUM 9.6 mg/dL (8.8-10.2); CREATININE 1.9 mg/dL (0.5-0.9); POTASSIUM 4.3 mmol/L (3.5-5.1)
[2018-11-28 08:25] LABS: CALCIUM 9.6 mg/dL (8.8-10.2); PHOSPHORUS 3.9 mg/dL (2.7-4.5); POTASSIUM 4.5 mmol/L (3.5-5.1)
[2018-11-28] MEDS: PULMICORT INH SCH ×2 (08:55→19:55)
[2018-11-28] MEDS: ROCEPHIN 1 GM in NS 50 ML IV SCH ×2 (09:40→21:54)
[2018-11-28] MEDS: VITAMIN D PO SCH (09:40)
[2018-11-28] MEDS: PREDNISONE PO SCH (09:41)
[2018-11-28] MEDS: CENTRUM SILVER PO SCH (09:41)
[2018-11-28] MEDS: HEPARIN SUBQ SCH ×2 (09:41→21:54)
[2018-11-28] MEDS ORDERED: DIFLUCAN PO SCH (12:00)
--- NOTE | 2018-11-28 13:34 | PROGRESS NOTE ---
DATE: 11/28/2018 SUBJECTIVE: The patient is feeling better. It looks like she is having some yeast infection inside her mouth. She is having some problems swallowing. So likely this patient has Dariana esophagitis. Infectious Disease Department on board and they have placed this patient on fluconazole and nystatin. OBJECTIVE: Vital Signs: Temperature 98 degrees, pulse 103, respiratory rate 18, blood pressure 118/74, oxygen saturation 97% on room air. HEENT: Head normocephalic. No trauma. PERRLA. Mouth with some whitish plaques. A little bit painful. Neck: Supple. No JVD. No masses. Central trachea. Chest: Coarse breath sounds bilaterally with some crepitus at the bases. No wheezing. Abdomen: Soft, nontender, nondistended. No hepatosplenomegaly. Extremity: Edema, no clubbing, no cyanosis. Neurological: The patient is alert and oriented x3. No focal deficits. LABORATORY: WBC 13, hemoglobin 9.6, hematocrit 29.5, platelets 447,000. Sodium 138, potassium 4.3, chloride 100, bicarbonate 24, BUN 63, creatinine 1.9. Glucose 87, calcium 9.6. ASSESSMENT AND PLAN: 1. Multilobar pneumonia. Continue with antibiotics, breathing treatment, pulmonary toilet. She is no longer using oxygen and the oxygen saturation has been stable. Infectious Disease Department following this patient, as well as Pulmonary Department. We will monitor. 2. Pulmonary hypertension. She is breathing better. Likely she has an acute on chronic cor pulmonale, which has been resolved, but CT scan showed multiple pneumonia rather than fluid- related problem. 3. Hypertension, continue with same management. 4. Acute on chronic kidney disease. Avoid nephrotoxic medications. She is getting better. Nephrology Department on board. 5. Apparently borderline multiple myeloma followed by Dr. Zapata. 6. Chronic anemia. We will monitor. 7. Hyperglycemia, hemoglobin A1c 4.9, which is normal. I already stopped the IV antibiotics and has been switched to antibiotics and the blood sugar has been normal. 8. Hyperlipidemia. Continue to monitor. 9. Deep vein thrombosis prophylaxis with heparin every 12 hours given her kidney injury. 10. Elevated troponins, likely secondary to demand ischemia. Cardiology already evaluated this patient. She is not having any kind of acute coronary syndrome at this moment. cc: Jamie Hebert MD
--- NOTE | 2018-11-28 13:39 | INFECTIOUS DISEASE PROGRESS NO ---
DATE: 11/28/2018 PRESENT ILLNESS: Patient has a pneumococcal pneumonia with an associated bacteremia. She also has a low IgA level. She also has developed oral candidiasis and Dariana esophagitis. MEDICATIONS: The patient is receiving Rocephin 1 g IV every 12 hours. PHYSICAL EXAMINATION: Vital Signs: Temperature is 98 degrees, pulse 103, respirations 18, blood pressure is 118/74. General: This is a somewhat ill-appearing, elderly female. She is in no acute distress. Head, eyes, ears, nose, and throat: The patient has a white coating on her tongue. She can hear my spoken words and see near objects. Neck: No meningismus. Lungs: Few rales were heard in the right base. Cardiovascular: Heart rate is regular. Abdomen: Soft and not tender. Neurologic: Patient is alert. She can move her extremities. She does not have a tremor. Integument: No rash noted. LAB AND X-RAY: The patient's chest x-ray shows improvement in the right lung infiltrate. CBC shows a white count of 13,040, hemoglobin 9.6, and platelet count is 447,000. Creatinine is 1.9. GFR is 26. IgA is 13, IgG is 1198. ASSESSMENT AND PLAN: The patient has pneumococcal pneumonia with an associated bacteremia. My plan is to discontinue Rocephin tomorrow and the patient will be discharged tomorrow on p.o. Levaquin. The patient has oral candidiasis and she tells me she has developed odynophagia. Therefore, I think she also has Dariana esophagitis. I plan to treat her with a combination of nystatin 5 mL swish and swallow q.i.d. and fluconazole 200 mg p.o. daily. As regarding the patient's immunoglobulin levels, the IgG level is very low but unfortunately, there is not a product that we can give her that will increase the IgA level. My plan now is for the patient to be discharged tomorrow on p.o. Levaquin, p.o. fluconazole and Mycostatin swish and swallow. I have given the patient appointment in my office for 2 weeks at which time she will be examined and also repeat x-ray will be obtained. COMORBIDITIES: Bronchiectasis, chronic obstructive pulmonary disease, gastroesophageal reflux disease, and possibly multiple myeloma. In addition, the patient has a low IgA level which makes her much more likely to get infections. cc: Garret Crowder MD
--- NOTE | 2018-11-28 13:40 | NEPHROLOGY PROGRESS NOTE ---
DATE: 11/28/2018 TIME SEEN: 0812. SUBJECTIVE: Ms. Dillon states that she is feeling much better today. No complaints of chest pain or increased work of breathing. OBJECTIVE: Vitals: Her most recent vital signs, her last temperature 98 degrees, blood pressure 118/74, heart rate 101, respirations are 18. She is on room air. Last recorded saturation is 96%. General: This is a 78-year-old white female resting quietly in bed. Head of the bed is elevated. She appears in no acute distress. Skin: Warm and dry. HEENT: Normocephalic, atraumatic. Conjunctiva is pale pink. She has FREDRICK. Mucous membranes are dry. Neck: Supple. Trachea midline. No evidence of JVD. Cardiovascular: She is regular rate and rhythm without murmur or gallop. Lungs: Clear to auscultation bilaterally. Equal excursion with an occasional coarse rhonchi noted, though does slightly clear with cough. She remains on room air. Abdomen: Soft, nontender, positive bowel sounds. Genitourinary: Not inspected. Adequate urine out according to the patient, though this is not been recorded. Extremities: Have no edema. INPUT AND OUTPUT: She has had 1200 in, she has been voiding, though not recorded. LABORATORY DATA: Sodium 139, potassium 4.5, chloride 100, CO2 23, BUN 63, creatinine 2, glucose 84. The patient has an anion gap of 14, calcium 9.6, phosphorus 3.9, albumin 3. White count 13.04, hemoglobin 9.6, hematocrit 29.5 with a platelet count of 447,000. ASSESSMENT AND PLAN: 1. Acute kidney injury on chronic kidney disease stage 3a. The patient's creatinine has improved from yesterday. It is down to 1.9. She has had adequate urine out. She remains fairly stable. 2. Electrolytes and acid-base balance, these are in target. 3. Anemia, this is acceptable. 4. Multilobar pneumonia. This is followed by the primary care team. She remains on IV antibiotics, renally dosed. I would like to thank you for allowing us to follow with this patient. Dictated by ANDRES Hoyt for Porter Bryan MD Face to face encounter, data reviewed, discussed with Libby Roberts on 11/28/18. I agree with the above assessment and plan of care. cc: ANDRES Hoyt MD [facility]
[2018-11-28] MEDS: LEVAQUIN PO SCH (17:00)
[2018-11-28] MEDS: DIFLUCAN PO SCH (17:00)
[2018-11-28] MEDS: MYCOSTATIN SUSP PO SCH ×3 (17:01→21:54)
[2018-11-28] MEDS: DESYREL PO PRN (23:26)
[2018-11-29] MEDS: ATROVENT NEB INH SCH ×3 (03:27→11:17)
[2018-11-29] MEDS: XOPENEX NEB INH SCH ×3 (03:28→11:18)
--- NOTE | 2018-11-29 07:23 | EKG Report ---
Test Performed on : 11/29/2018 06:54:19 AM Test Reason : CP Blood Pressure : / mmHG Vent. Rate : 103 BPM Atrial Rate : 115 BPM P-R Int : 000 ms QRS Dur : 084 ms QT Int : 348 ms P-R-T Axes : 000 096 -07 degrees QTc Int : 455 ms Sinus tachycardia. Rightward axis Low voltage QRS Borderline Abnormal QRS-T angle, consider primary T wave abnormality Abnormal ECG When compared with ECG of 25-NOV-2018 09:21, T wave inversion no longer evident in Inferior leads (diffuse flattening instead) Confirmed by Anastasiya HERNANDEZ, Avelino Heredia ([id number]) on 11/29/2018 6:14:46 PM
[2018-11-29 07:35] LABS: BASO# 0.01 X1000 (0.0-0.2); BASO% 0.1 % (0.0-0.8); EOS# 0.06 X1000 (0.0-0.7); EOS% 0.5 % (0.0-10.0); HEMATOCRIT 28.6 % (37.0-47.0); HEMOGLOBIN 9.4 g/dL (12.0-16.0); IMM GRAN# 0.03 X1000 (0.0-0.04); IMM GRAN% 0.2 % (0.0-0.5); LYMPH# 2.05 X1000 (1.2-3.4); LYMPH% 16.9 % (20.5-51.1); MCH 28.8 PG (27-31); MCHC 32.9 g/dL (33-37); MCV 87.7 FL (81-99); MONO# 1.14 X1000 (0.11-0.59); MONO% 9.4 % (1.7-9.3); MPV 9.7 FL (7.4-10.4); NEUT# 8.85 X1000 (1.4-6.5); NEUT% 72.9 % (42.2-75.2); PLT 424 X1000 (130-400); RBC 3.26 XMIL (4.2-5.4); RDW 16.4 % (11.5-14.5); WBC 12.14 X1000 (4.8-10.8)
[2018-11-29 07:53] LABS: ALBUMIN 2.9 g/dL (3.5-5.0); CALCIUM 9.4 mg/dL (8.8-10.2); CREATININE 1.6 mg/dL (0.5-0.9); PHOSPHORUS 4.1 mg/dL (2.7-4.5); POTASSIUM 4.3 mmol/L (3.5-5.1)
[2018-11-29] MEDS: PULMICORT INH SCH (08:12)
--- NOTE | 2018-11-29 09:35 | INFECTIOUS DISEASE PROGRESS NO ---
DATE: 11/29/2018 PRESENT ILLNESS: The patient has pneumococcal pneumonia with an associated bacteremia, a low IgA level, and both oral and esophageal candidiasis. MEDICATIONS: The patient has been on Rocephin. I added Levaquin yesterday. We also started the patient on Mycostatin swish and swallow and fluconazole. PHYSICAL EXAMINATION: Vital Signs: Temperature is 98.1 degrees, pulse 102, respirations 18, blood pressure 143/70. General: This is a somewhat ill-appearing, elderly female. However, she does look much better than she did a few days ago. Head/eyes/ears/nose/throat: She can hear my spoken words and see near objects. The white coating on her tongue has almost completely cleared. Neck: No meningismus. Lungs: There were bilateral rales. Cardiovascular: Heart rate is regular. Abdomen: Soft and not tender. Neurologic: Patient is alert. She can move her extremities. She is able to ambulate. INTEGUMENT: No rash noted. LAB AND X-RAY: Chest x-ray shows improvement in the right lung infiltrate. Creatinine is 1.6. GFR is 31. [place] [address], hemoglobin 9.4, and platelet count of 424,000. ASSESSMENT AND PLAN: The patient is going home on Levaquin to treat the patient's pneumococcal pneumonia and bacteremia. She is also going to be going home on fluconazole and Mycostatin Swish And Swallow for the patient's oral and esophageal candidiasis. Unfortunately for the patient's low immunoglobulin level, namely the low IgA, there is no replacement product for it. COMORBIDITIES: Bronchiectasis, chronic obstructive pulmonary disease, gastroesophageal reflux disease, possible multiple myeloma. The patient also has a low IgA level. cc: Garret Crowder MD
[2018-11-29] MEDS: ROCEPHIN 1 GM in NS 50 ML IV SCH (10:34)
[2018-11-29] MEDS: PREDNISONE PO SCH (10:39)
[2018-11-29] MEDS: MYCOSTATIN SUSP PO SCH (10:39)
[2018-11-29] MEDS: DIFLUCAN PO SCH (10:40)
[2018-11-29] MEDS: LEVAQUIN PO SCH (10:41)
[2018-11-29] MEDS: VITAMIN D PO SCH (10:41)
[2018-11-29] MEDS: CENTRUM SILVER PO SCH (10:42)
[2018-11-29] MEDS: HEPARIN SUBQ SCH (10:43)
--- NOTE | 2018-11-29 10:51 | NEPHROLOGY PROGRESS NOTE ---
DATE: 11/29/2018 TIME SEEN: 0755. SUBJECTIVE: Ms. Dillon continues to rest quietly in bed. Head of the bed is elevated. She denies any pain or increased work of breathing. OBJECTIVE: Vital Signs: Her most recent vital signs are temperature 98.1 degrees, blood pressure 143/70, heart rate 105, respirations 16. She is on room air. Last recorded saturation is 99%. She has had 200 in. She has had 0 recorded out, though patient states that she has been voiding. Laboratory Data: Sodium 136, potassium 4.3, chloride is 100, CO2 26, BUN 48, creatinine 1.6, glucose 87. White count 12.14, hemoglobin 9.4, hematocrit 28.6, with a platelet count of 424,000. Physical Examination: General: This is a 78-year-old, white female. She is resting quietly in bed. Head of the bed is elevated. She is in no acute distress. HEENT: Normocephalic, atraumatic. Conjunctiva are pale pink. She has FREDRICK. Mucous membranes are dry. Neck: Supple. Trachea midline. No evidence of JVD. Cardiovascular: She has regular rate and rhythm. She is without murmur or gallop. Lungs: Clear to auscultation bilaterally. Equal excursion on room air. Abdomen: Soft, nontender. Positive bowel sounds. Genitourinary: Not inspected. The patient has adequate urine out. Extremities: Have no edema. No clubbing or cyanosis. Neurological: Alert and oriented x3. ASSESSMENT AND PLAN: 1. Acute kidney injury on chronic kidney disease stage IIIA. Patient's BUN and creatinine have continued to slowly improve. She has had adequate urine output. We will plan for followup in our office after discharge in 2 to 3 weeks with labs. 2. Electrolytes, acid-base balance, and anemia. These are stable. 3. Multilobar pneumonia. She remains on antibiotics per primary care. I would like to thank you for allowing us to follow with this patient. Dictated by ANDRES Hoyt for Porter Bryan MD Face to face encounter, data reviewed, discussed with Libby Roberts on 11/29/18. I agree with the above assessment and plan of care. cc: ANDRES Hoyt MD [facility]
[2018-11-29 12:02] VITALS: BP 138/67
--- NOTE | 2018-11-30 04:26 | DISCHARGE SUMMARY ---
ADMISSION DATE: 11/24/2018 DISCHARGE DATE: 11/29/2018 DISCHARGE DIAGNOSES: 1. Multilobar pneumonia. 2. Pulmonary hypertension likely with acute on chronic cor pulmonale. 3. Hypertension. 4. Acute on chronic kidney disease. 5. Borderline multiple myeloma followed by Dr. Zapata. 6. Chronic anemia. 7. Hypogammaglobulinemia with low IgA deficiency. 8. Chronic anemia. 9. Hyperglycemia. 10. Hyperlipidemia. 11. Elevated troponin upon admission. 12. Dyslipidemia. CONSULTANTS: 1. Infectious Disease Department Dr. Garret Crowder. 2. Cardiology Department Dr. Bond. 3. Nephrology Department Dr. Bryan. HOSPITAL COURSE: A 78-year-old female with a past medical history of frequent pneumonia, COPD, chronic bronchiectasis, borderline multiple myeloma who presented and was admitted on 11/24/2018 due to running nose, fever, chills, cough with yellow phlegm, fatigue, shortness of breath since a few days ago probably 4 days, but the night prior to the admission she started having chest and back pain, also neck pain that was worse with her coughing. She states that 5 to 6 days prior to admission she was around a person that was pretty sick with respiratory complaints. Images showed multilobar pneumonia bilaterally with signs of cor pulmonale. She was admitted to the [facility] Unit Pulmonary Department and was consulted. She was placed on antibiotics, steroids, bronchodilators, and oxygen. We will follow really close the laboratory as well. CT scan showed emphysema and bilateral multilobar pneumonia. Renal ultrasound showed the possibility of medical renal disease because of the increase of renal echotexture and cortical thinning. Infectious Disease Department was consulted, and they stopped her vancomycin and put this patient on Zyvox. She has a history of low AGA level that predisposed this patient to an infection. We have a positive blood culture that showed streptococcal pneumonia. She was placed on antibiotics by Infectious Disease Department. She was getting better on a daily basis. Because of her tachycardia which was probably multifactorial, cardiology department evaluated this patient. They recommended only to monitor this patient closely. The patient's BUN and creatinine started to increase so we consulted nephrology department, and they thought that probably this was related with intravascular volume depletion on top of angiotensin receptor laisha therapy which was stopped to treat the patient. We started hydrating this patient orally, and will continue monitoring her lab work. The patient actually was improving on a daily basis to the point that she was not longer using oxygen. She was not feeling short of breath, and the cough improved as well as the images. This patient will be discharged today. Infectious Disease Department has suggested to discharge this patient with 2 more weeks of antibiotics, which is going to be Levaquin to treat this patient's pneumococcal bacteremia and pneumonia. Around 2 to 3 days ago, she started complaining of mouth pain and problems swallowing. Likely, this is related to esophageal and oral Dariana so we will start this patient on Nystatin and fluconazole which she will continue as an outpatient for a couple of days as well. The patient will be discharged today. She will follow up with Nephrology Department in 1 or 2 weeks, and Infectious Disease Department in 2 weeks. Follow up also with her primary care provider in 1 or 2 weeks. She needs to call for an appointment. At the moment of discharge, the patient was in a stable medical condition, tolerating p.o. ambulating and not using oxygen. PHYSICAL EXAMINATION: Vital Signs: Temperature 98.1 degrees, pulse 102, respiratory rate 18, blood pressure 138/67, oxygen saturation 97% on room air. HEENT: Head normocephalic. No trauma. PERRLA. Neck: Supple. No JVD. No masses. Central trachea. Chest: Clear to auscultation. There is some crepitus at the bases. No wheezing. No rales. Abdomen: Soft, nontender, and nondistended. No hepatosplenomegaly. Extremities: No edema. No clubbing. No cyanosis. Neurological: The patient is alert and oriented x3. No focal deficits. LABORATORY: WBC 12.1, hemoglobin 9.4, hematocrit 28.6, platelets 424,000, sodium 136, potassium 4.3, chloride 100, bicarbonate 26, BUN 48, creatinine 1.6, glucose 87, calcium 9.4, phosphorus 4.1, and albumin 2.9. DISCHARGE MEDICATIONS: 1. Levofloxacin 500 mg p.o. daily. 2. Nystatin swish and swallow 4 times a day. 3. Fluconazole 200 mg p.o. daily for 2 weeks. 4. Acetaminophen 650 mg p.o. q.4 hours p.r.n. as needed for fever. 5. Medrol Dosepak 4 mg p.o. as directed. 6. Spiriva 1 puff inhalation daily. 7. Benzonatate 1 capsule orally every 6 hours as needed for cough. 8. Advair 250/50 Diskus 1 puff inhaler inhalation twice a day. 9. Multivitamin 1 tablet p.o. daily. 10. Vitamin D 3 2000 units p.o. daily. 11. Zanaflex 4 mg every 8 hours. 12. Trazodone 50 mg p.o. at bedtime. 13. Loratadine 10 mg p.o. daily. TIME SPENT: Time discharging this patient 35 minutes. cc: Jamie Hebert MD
== END 2018-11-29 14:49 | disposition home or self-care (01) | DRG 190 ==
LOC: ED 04:15 → SUATTDRO 09:30 → EDIPHOLD 09:30 → 3S 20:50 → 4N 11-26 15:59
PROVIDERS: ATTEND Internal Medicine
CPT/HCPCS: 71010; 71045; 71250; 76770; 80048; 80053; 80061; 80069; 81001; 81050; 82550; 82570; 82575; 82607; 82728; 82746; 82784; 82805; 83036; 83540; 83550; 83605; 83721; 83880; 84156; 84166; 84300; 84439; 84443; 84484; 84540; 85025; 85027; 85610; 85730; 86335; 87040; 87070; 87077; 87186; 87205; 87275; 87276; 87804; 93005; 93010; 94640; 94761; 94799; 96365; 96367; 96375; 97162; 97530; 99285; A9270; J0696; J1644; J1756; J1940; J1956; J2020; J2543; J2920; J2930; J3370; J7050; J7506; J7512

== ENCOUNTER 2019-08-03 10:39 | Inpatient (IN) ==
[2019-08-03] MEDS ORDERED: ALBUTEROL NEB INH ONE (10:55)
--- NOTE | 2019-08-03 11:15 | Diag Imaging Result Doc PS360 ---
EXAM: CHEST-2 VIEWS 08/03/2019 HISTORY: sob TECHNIQUE: PA and lateral chest COMMENT: There is a large hydropneumothorax on the right. The pneumothorax is at least 2.6 cm in thickness at the apex. There is a left pleural effusion. There is increased interstitial markings in the left base. There are bilateral pleural effusions on the previous study of 03/09/2019 and the interstitial opacities were also present previously. The heart size is at the upper limits of normal. There is a nodular opacity in the left upper lobe which was not clearly present at the time the previous study. IMPRESSION: 1. Hydropneumothorax on the right. 2. New left upper lobe pulmonary nodule. 3. Bilateral pleural effusions 4. interstitial pulmonary edema versus fibrosis. The findings were discussed with Enrique Allen MD at 08/03/2019 11:11 AM. Electronically signed by Neno Maldonado 08/03/2019 11:11 AM
[2019-08-03 11:41] LABS: URINE SOURCE CLEAN CATCH
[2019-08-03 11:51] LABS: BILIRUBIN URINE NEGATIVE (NEGATIVE); BLOOD URINE TRACE (NEGATIVE); COLOR YELLOW; GLUCOSE URINE NEGATIVE (NEGATIVE); KETONE URINE NEGATIVE (NEGATIVE); LEUKOCYTES URINE NEGATIVE (NEGATIVE); NITRITE URINE NEGATIVE (NEGATIVE); PROTEIN URINE 200 mg/dL (NEGATIVE); SP GRAVITY URINE 1.017; TURBIDITY URINE CLEAR (CLEAR); UR EPITHELIAL CELLS <10 /HPF (<10); URINE BACTERIA NEGATIVE /HPF; URINE RBC <10 /HPF (<10); URINE WBC <10 /HPF (<10); UROBILINOGEN URINE NORMAL (NORMAL)
[2019-08-03 12:30] LABS: BASO# 0.06 X1000 (0.0-0.2); BASO% 0.4 % (0.0-0.8); EOS% 0.7 % (0.0-10.0); HEMATOCRIT 40.1 % (37.0-47.0); HEMOGLOBIN 13.6 g/dL (12.0-16.0); IMM GRAN# 0.02 X1000 (0.0-0.04); IMM GRAN% 0.1 % (0.0-0.5); LYMPH# 1.15 X1000 (1.2-3.4); LYMPH% 8.4 % (20.5-51.1); MCH 31.3 PG (27-31); MCHC 33.9 g/dL (33-37); MCV 92.4 FL (81-99); MONO# 0.89 X1000 (0.11-0.59); MONO% 6.5 % (1.7-9.3); MPV 10.1 FL (7.4-10.4); NEUT# 11.43 X1000 (1.4-6.5); NEUT% 83.9 % (42.2-75.2); PLT 367 X1000 (130-400); RBC 4.34 XMIL (4.2-5.4); RDW 13.9 % (11.5-14.5); WBC 13.65 X1000 (4.8-10.8)
[2019-08-03 12:39] LABS: INR 1.1; PROTIME 14.3 Seconds (11.0-16.0)
[2019-08-03 12:40] LABS: PTT 25.9 Seconds (22.3-41.8)
[2019-08-03 12:48] LABS: ALB/GLOB RATIO 1.4; ALBUMIN 3.8 g/dL (3.5-5.0); POTASSIUM 4.6 mmol/L (3.5-5.1); TOTAL BILIRUBIN 0.55 mg/dL (0.20-1.00); TOTAL PROTEIN 6.6 g/dL (6.3-8.3)
[2019-08-03] MEDS ORDERED: SENSORCAINE 0.25%/EPI 1:200,000 ONE (13:28)
[2019-08-03] MEDS ORDERED: XYLOCAINE 1% ONE (13:28)
[2019-08-03] MEDS ORDERED: XYLOCAINE-MPF 2% ONE (13:34)
[2019-08-03] MEDS ORDERED: DIPRIVAN 1% ONE (13:34)
[2019-08-03] MEDS ORDERED: FENTANYL ONE (13:36)
--- NOTE | 2019-08-03 13:48 | PROVIDER DOCUMENTATION ---
This chart was entered by Leonila Ingram Scribe, acting as scribe for Enrique Allen MD. HPI-Respiratory General - General Chief Complaint: Shortness of Breath Stated Complaint: SOB Time Seen by Provider: 08/03/19 11:13 Source: patient, family () Allergies/Adverse Reactions: Patient Allergies Allergy/AdvReac Type Severity Reaction Status Date / Time codeine [Codeine] AdvReac Mild "MAKES ME Verified 11/24/18 05:08 HYPER" Home Medications: Home Medication List Medication Instructions Recorded Confirmed Last Taken Type Tiotropium [place] Inhaler 1 puff INH RTDAILY 07/11/13 11/24/18 07/30/18 History [Spiriva] Benzonatate 1 cap PO Q6H PRN 06/25/18 11/24/18 Unknown History Fluticasone/Salmet 250/50 INH 1 puff INH BID 06/25/18 11/24/18 07/30/18 History [Advair 250/50 Diskus] Cholecalciferol (Vit D3) [Vitamin 2,000 unit PO DAILY 07/28/18 11/24/18 Unknown History D] Mv-Min/Iron/Folic/Calcium/Vitk 1 tab PO DAILY 07/28/18 11/24/18 07/29/18 History [Women's Daily Formula Tablet] Ipratropium [place] Inhaler 2 puff INH Q6H PRN PRN 11/24/18 11/24/18 Unknown History [Atrovent Hfa] Loratadine [Claritin] 10 mg PO DAILY 11/24/18 11/24/18 Unknown History Tizanidine [Zanaflex] 4 mg PO Q8HR 11/24/18 11/24/18 Unknown History Trazodone HCl 50 mg PO HS 11/24/18 11/24/18 Unknown History Fluconazole 200 mg PO DAILY #14 tab 11/28/18 Unknown Rx Levofloxacin [Levaquin] 500 mg PO DAILY #14 tab 11/28/18 Unknown Rx Nystatin 100,000 unit PO 4XDAY #120 ml 11/28/18 Unknown Rx Acetaminophen [Tylenol] 650 mg PO Q4H PRN PRN tablet 11/29/18 Unknown Rx Methylprednisolone [Medrol Dosepak] 4 mg PO DIRECTED #1 pkg 11/29/18 Unknown Rx - History of Present Illness-Resp Nature of Presenting Problem: 79 yowf presents to the ed with at bedside. pt has c/o sob worsening this am with onset last night and productive cough. pt stsis on abx and has been sick for 2 weeks. pt is anxious on exam and sts uses home o2 @ 2LPM. pt has hx of bronchiolitis Quality of Pain: reports: none Severity in ED: reports: moderate Onset/Duration: reports: last night Timing: reports: still present, constant, getting worse Context: reports: recent URI Cough Quality/Degree: reports: moderate, productive cough, sputum Episode Frequency: frequent episodes Current Respiratory Medication Therapy: Initiated see nurses note Modifying Factors: worse with: exertion, coughing Associated Symptoms: reports: cough, shortness of breath. denies: fever/chills, headache, lightheadedness, wheezing Similar Symptoms Previously?: Yes (hx of bronchiolitis and sob) Recently seen or treated by another doctor?: No Review of Systems - Adult - REVIEW OF SYSTEMS - ADULT Constitutional: denies: chills, fever Eyes: reports: no symptoms reported Ears, Nose, Mouth & Throat: reports: no symptoms reported Cardiovascular: denies: chest pain, palpitations, syncope Respiratory: reports: see HPI, cough, dyspnea on exertion, shortness of breath Gastrointestinal: denies: diarrhea, nausea, vomiting Genitourinary: reports: no symptoms reported Musculoskeletal: denies: back pain, neck pain Integumentary: reports: no symptoms reported Neurological: denies: dizziness/vertigo, headache/migraines Psychiatric: reports: no symptoms reported Endocrine: reports: no symptoms reported Hematologic/Lymphatic: reports: no symptoms reported Allergic/Immunologic: reports: no symptoms reported All Other Systems: Reviewed and Negative Past History - Adult - PAST MEDICAL HISTORY-ADULT Review of Records: reports: Old Records Reviewed, Nursing Assessment Review, M edications Reviewed, Social history reviewed & non-contributory. Major Childhood Illnesses: reports: denies history Cardiovascular: reports: HTN Respiratory: reports: COPD, pneumonia, other (bronchiectasis) Gastrointestinal: reports: GERD Obstetrical/Gynecological: reports: denies history Genitourinary: reports: denies history Musculoskeletal: reports: denies history Neurological: reports: denies history Psychiatric: reports: denies history Endocrine/Immune: reports: denies history Other Conditions: reports: denies history - PRIOR SURGERIES/PROCEDURES Surgical/Procedure History: reports: reviewed, not pertinent, BTL - PRIOR HOSPITALIZATIONS Prior Hospitalizations: reports: none - IMMUNIZATION STATUS Childhood Immunizations: UTD Flu Vaccine: UTD - FAMILY HISTORY Family History: reviewed, not pertinent - SOCIAL HISTORY Smoking: quit greater than 1 year Substance Use: alcohol Alcohol Use Frequency: every day Number of drinks per typical drinking period:: 1 drink (wine) Living Situation: family Physical Exam-General - PHYSICAL EXAM-ADULT Initial Vital Signs Reviewed: Yes (temp-97.4 HR-117 RR-26) - CONSTITUTIONAL General Appearance: appears well, alert, mild distress, thin, anxious - EYES Eyes: PERRL/EOMI, pink conjunctivae - HEAD, EARS, NOSE, MOUTH & THROAT HENMT: moist mucous membranes - NECK Neck: full range of motion, supple, normal inspection - RESPIRATORY Respiratory: decreased breath sounds (on rt side), increased rate (26), other (O2 @ 99% via nc) - CARDIOVASCULAR Cardiovascular: normal peripheral pulses, tachycardia (117) - CHEST (BREASTS) Chest/Breast: deferred - GASTROINTESTINAL (ABDOMEN) Abdominal Exam: normal bowel sounds, non tender, soft - LYMPHATIC Lymphatic: no adenopathy - MUSCULOSKELETAL Back Exam: normal inspection, no CVA tenderness, no vertebral tenderness Extremity: normal range of motion, non-tender, normal gait, normal inspection - SKIN Integumentary: normal color, normal turgor, warm/dry - NEUROLOGIC Neurologic: grossly normal, no motor/sensory deficits - PSYCHIATRIC Psych/Mental Status: normal thought content, normal thought process, oriented x 3, anxious Progress - PLAN OF CARE/RESULTS Progress/Plan/Lab Results: Vital Signs - 8 hr 08/03/19 10:48 08/03/19 11:00 08/03/19 11:18 Temperature 97.4 F L Pulse Rate 117 H 110 H Respiratory Rate 26 H 20 Blood Pressure 136/89 148/82 O2 Sat by Pulse Oximetry 97 08/03/19 11:24 08/03/19 11:30 08/03/19 11:45 Temperature Pulse Rate Respiratory Rate Blood Pressure O2 Sat by Pulse Oximetry 99 100 100 08/03/19 12:00 Temperature Pulse Rate 116 H Respiratory Rate 15 Blood Pressure O2 Sat by Pulse Oximetry 97 Laboratory Results - last 24 hr 08/03/19 08/03/19 08/03/19 11:15 12:16 12:16 WBC 13.65 H RBC 4.34 Hgb 13.6 Hct 40.1 MCV 92.4 MCH 31.3 H MCHC 33.9 RDW Std Deviation 13.9 Plt Count 367 MPV 10.1 Immature Gran % (Auto) 0.1 Neut % (Auto) 83.9 H Lymph % (Auto) 8.4 L [place] % (Auto) 6.5 Eos % (Auto) 0.7 Baso % (Auto) 0.4 Immature Gran # (Auto) 0.02 Neut # (Auto) 11.43 H Lymph # (Auto) 1.15 L [place] # (Auto) 0.89 H Eos # (Auto) 0.10 Baso # (Auto) 0.06 PT INR PTT (Actin FS) Sodium 136 Potassium 4.6 Chloride 96 L Carbon Dioxide 26 Anion Gap 14 BUN 32 H Creatinine 1.0 H Estimated GFR/1.73 m2 54 BUN/Creatinine Ratio 32 Glucose 79 Calculated Osmolality 278 Calcium 10.0 Total Bilirubin 0.55 AST 21 ALT 19 Alkaline Phosphatase 104 Creatine Kinase 50 Troponin T Total Protein 6.6 Albumin 3.8 Globulin 2.8 Albumin/Globulin Ratio 1.4 Plasma Lactate Urine Source CLEAN CATCH Urine Color YELLOW Urine Turbidity CLEAR Urine pH 6.0 Ur Specific [place] 1.017 Urine Protein 200 A Ur Glucose (Stick) NEGATIVE Ur Ketones (Stick) NEGATIVE Urine Blood TRACE A Urine Nitrite NEGATIVE Urine Bilirubin NEGATIVE Urobilinogen Dipstick NORMAL Urine Leukocytes NEGATIVE Urine WBC (Auto) <10 Urine RBC (Auto) <10 U Epithel Cells (Auto) <10 Urine Bacteria (Auto) NEGATIVE 08/03/19 08/03/19 08/03/19 12:16 12:16 12:16 WBC RBC Hgb Hct MCV MCH MCHC RDW Std Deviation Plt Count MPV Immature Gran % (Auto) Neut % (Auto) Lymph % (Auto) [place] % (Auto) Eos % (Auto) Baso % (Auto) Immature Gran # (Auto) Neut # (Auto) Lymph # (Auto) [place] # (Auto) Eos # (Auto) Baso # (Auto) PT 14.3 INR 1.10 PTT (Actin FS) 25.9 Sodium Potassium Chloride Carbon Dioxide Anion Gap BUN Creatinine Estimated GFR/1.73 m2 BUN/Creatinine Ratio Glucose Calculated Osmolality Calcium Total Bilirubin AST ALT Alkaline Phosphatase Creatine Kinase Troponin T 0.088 Total Protein Albumin Globulin Albumin/Globulin Ratio Plasma Lactate 0.8 Urine Source Urine Color Urine Turbidity Urine pH Ur Specific [place] Urine Protein Ur Glucose (Stick) Ur Ketones (Stick) Urine Blood Urine Nitrite Urine Bilirubin Urobilinogen Dipstick Urine Leukocytes Urine WBC (Auto) Urine RBC (Auto) U Epithel Cells (Auto) Urine Bacteria (Auto) Orders Category Date Time Status Cardiac Monitoring DIRECTED Care 08/03/19 11:32 Active Consent for Surgery DIRECTED Care 08/03/19 13:05 Active IV Insertion ORDERED Care 08/03/19 11:32 Completed Notify MD of + Sepsis Screen NOW Care 08/03/19 11:32 Active CHEST-2 VIEWS [RAD] Stat Exams 08/03/19 10:[address] THORAX W/CONTRAST [CT] Stat Exams 08/03/19 13:03 Ordered BLOOD CULTURE [BLDCUL] Stat Lab 08/03/19 13:27 Received CBC WITH DIFF [HEME] Stat Lab 08/03/19 12:16 Completed CK PROFILE [SP CHEM] Stat Lab 08/03/19 12:16 Completed COMPREHENSIVE METABOLIC PANEL [CHEM] Stat Lab 08/03/19 12:16 Completed LACTATE, PLASMA [CHEM] Lab 08/03/19 12:16 Completed LACTATE, PLASMA [CHEM] Lab 08/03/19 14:45 Uncollected LACTATE, PLASMA [CHEM] Lab 08/03/19 17:45 Uncollected PROTIME WITH INR [COAG] Stat Lab 08/03/19 12:16 Completed PTT [COAG] Stat Lab 08/03/19 12:16 Completed TROPONIN T Stat Lab 08/03/19 12:16 Completed UA NIMS W/REFLEX CULT [URINALYSIS] Stat Lab 08/03/19 11:15 Completed Albuterol [Albuterol Neb] Med 08/03/19 10:55 Discontinued 2.5 mg INH NOW ONE Bupivacaine 0.25%/Epi 1:[id number] [Sensorcaine 0.25%/Epi 1 Med 08/03/19 13:28 Discontinued :200,000] 50 ml .ROUTE .STK-MED ONE Fentanyl Med 08/03/19 13:36 Discontinued 250 microgm .ROUTE .STK-MED ONE Lidocaine 1% [Xylocaine 1%] Med 08/03/19 13:28 Discontinued 50 ml .ROUTE .STK-MED ONE Lidocaine 2% Pf [Xylocaine-Mpf 2%] Med 08/03/19 13:34 Discontinued 5 ml .ROUTE .STK-MED ONE Propofol [Diprivan 1%] Med 08/03/19 13:34 Discontinued 200 mg .ROUTE .STK-MED ONE Aerosol Treatments Routine Ot 08/03/19 10:55 Completed Aerosol Treatments Stat Ot 08/03/19 10:55 Completed Oxygen Device Stat Ot 08/03/19 11:32 Completed Result Diagrams: 08/03/19 12:16 08/03/19 12:16 - REASSESSMENT Reassessment #1 Time Reassessed: 11:18 Status: unchanged Reassessment #2 Time Reassessed: 13:04 Status: unchanged (MAINTIANING OXYGENATION WITHOUT FATIGUE, DR CASTELLON AT BEDSIDE AND PLANS TO TAKE TO SURGERY LATER TODAY. STILL AWAITING CALL BACK FROM SPITALIST.) - XRAY 1 XRAY: Bilateral XRAY Study: Chest Impression: See EMR Report (EXAM: CHEST-2 VIEWS 08/03/2019 HISTORY: sob TECHNIQUE: PA and lateral chest COMMENT: There is a large hydropneumothorax on the right. The pneumothorax is at least 2.6 cm in thickness at the apex. There is a left pleural effusion. There is increased interstitial markings in the left base. There are bilateral pleural effusions on the previous study of 03/09/2019 and the interstitial opacities were also present previously. The heart size is at the upper limits of normal. There is a nodular opacity in the left upper lobe which was not clearly present at the time the previous study. IMPRESSION: 1. Hydropneumothorax on the right. 2. New left upper lobe pulmonary nodule. 3. Bilateral pleural effusions 4. interstitial pulmonary edema versus fibrosis. The findings were discussed with Enrique Allen MD at 08/03/2019 11:11 AM. Electronically signed by Neno Maldonado 08/03/2019 11:11 AM 08/03/19 1111 Interpreting Physician: Neno Maldonado MD Dictated Date/Time: 08/03/19 1107 cc: Enrique Allen MD; Kathrin Richards MD) - CONSULTS/PCP/HOSPITALIST Notification #1 *Consult/PCP/Hospitalist*: dr castellon sx Time Discussed: 11:37 Reason/Comments: phone consult #2 Consult: hospitalist Time Discussed: 13:24 ([place]) Consult Disposition: Admit Departure - Departure Date of Disposition Decision: 08/03/19 Time of Disposition Decision: 13:24 DIAGNOSIS: Hemopneumothorax on right, History of bronchiectasis COPD (chronic obstructive pulmonary disease) Qualifiers: COPD type: unspecified COPD Qualified Code(s): J44.9 - Chronic obstructive pulmonary disease, unspecified Disposition: ADMITTED INPATIENT 09 Certified Medical Emergency: Emergent Condition: Fair Referrals and Follow-Ups: Kathrin Richards MD [Primary Care Provider] - - Critical Care Note This patient required my direct & personal management of CC.: Yes Total Time (mins): 38 Critical Care Statement: This patient required my direct personal management to treat or rule out processes, the absence of which, could potentiallly result in sudden, clinically significant life or limb threatening deterioration. Attestation - Physician/ MYRA Attestation Patient care was provided by Advanced Practice Provider:: No The physician spent face to face time with patient:: Yes Advanced Practice Provider documentation review:: Supervising physician onsite and consulted in the evaluation and care of this patient. The physician did have a face to face encounter with the patient. This chart was documented by the indicated scribe, (Leonila Ingram Scribe) and accurately reflects the services I performed and decisions made by me, Enrique Allen MD, as attested by the provider's signature.
[2019-08-03] MEDS: NORCO-5 ONE ×2 (14:30→20:17)
[2019-08-03] MEDS: ZOSYN 3.375 GM in NS 50 ML IV SCH ×3 (17:01→22:46)
[2019-08-03] MEDS ORDERED: TYLENOL PO PRN (17:16)
[2019-08-03] MEDS ORDERED: ZOFRAN IV PRN (17:16)
[2019-08-03] MEDS: ATROVENT NEB INH SCH ×2 (17:16→21:48)
[2019-08-03] MEDS: XOPENEX NEB INH SCH ×2 (17:16→21:48)
--- NOTE | 2019-08-03 18:27 | GENERAL SURGERY CONSULTATION ---
DATE: 08/03/2019 REQUESTING PHYSICIAN: Emergency Department. REASON FOR CONSULTATION: Left hydropneumothorax. HISTORY OF PRESENT ILLNESS: This 79-year-old female who has a history of bronchiectasis is presenting with shortness of breath that is worse in the last couple days. She has had a productive cough for a week, saw her primary care physician, and was started on Levaquin, but she has not had much improvement. She came into the emergency department and was seen and had a chest x-ray that showed hydropneumothorax on the right side. I was asked to place a chest tube and evaluate the patient. She is currently without any kind of respiratory distress and hemodynamically stable. PAST MEDICAL HISTORY: Bronchiectasis, hypertension, chronic kidney disease. PAST SURGICAL HISTORY: Tubal ligation, bronchoscopy, skin cancer removal. SOCIAL HISTORY: Former smoker. Alcohol, does report 2 glasses of wine a day. FAMILY HISTORY: Reviewed with patient but in this case, noncontributory. ALLERGIES: Codeine. CURRENT MEDICATIONS: Reviewed. REVIEW OF SYSTEMS: A full 14 systems reviewed and negative except as specified in HPI. PHYSICAL EXAMINATION: Vital Signs: Patient is currently afebrile. Her vital signs are stable. General: No acute distress. Alert, interactive, female, looks stated age. HEENT: Normocephalic, atraumatic. Pupils equal, round, reactive to light. Mucous membranes moist. Oropharynx benign. Neck: Supple. Trachea midline. Cardiovascular: Some mild tachycardia. Lungs: Decreased breath sounds on the right. Abdomen: Soft, nontender, nondistended. Extremities: Moves all extremities. Neurologic: Grossly intact. Skin: No signs of jaundice. Vascular: All extremities perfused. LABORATORY: White blood cell count 13, hematocrit is normal. Platelet count normal. INR is normal. Remainder of labs reviewed. Chest x-ray reviewed. CT scan pending. ASSESSMENT AND PLAN: A 79-year-old female with right hydropneumothorax. Right hydropneumothorax in the setting of bronchiectasis. We will get a CT scan of her chest. Likely needs a chest tube, but would like to get the CT scan to make sure there are no underlying other issues or a large bleb. We will follow up on the chest x-ray but we will consent her for chest tube placement. Discussed with her the risks, benefits, alternatives of the chest tube, risks including, but not limited to, bleeding, infection, risk of anesthesia, risk of injury to the lung and surrounding neurovascular bundles discussed. She voiced understanding and wished to proceed with the procedure. At this point, will have the patient admitted by the hospitalist and we will continue to follow and manage her chest tube while she is here. I appreciate the consult. cc: Mario Davila MD
[2019-08-03] MEDS: NORCO-5 PO PRN (19:23)
--- NOTE | 2019-08-03 19:46 | OPERATIVE NOTE ---
PROCEDURE DATE: 08/03/2019 PREOPERATIVE DIAGNOSIS: Right hydropneumothorax. POSTOPERATIVE DIAGNOSIS: Right hydropneumothorax. PROCEDURE: Right chest tube placement (24-Green[place]ic). SURGEON: Mario Davila MD. PANAMA HAT HYDRAULIC PRESS OPERATOR: None. ANESTHESIA: IV MAC with local administered by the surgeon. FINDINGS: About 1 L drained of serous fluid. COMPLICATIONS: None at time of dictation. ESTIMATED BLOOD LOSS: 5 mL. SPECIMENS REMOVED: None. BRIEF HISTORY: A 79-year-old female with right hydropneumothorax. It was felt that she would benefit from a chest tube placement. The risks, benefits, and alternatives were discussed and all questions answered. DESCRIPTION OF PROCEDURE: After informed consent was obtained, the patient was brought to the operative theater, transferred to the operating table, and placed in the supine position. IV MAC anesthesia was then performed without complication. A formal time-out was then performed, confirming patient and procedure. All were in agreement. At that time, attention was given to the right chest, which was prepped and draped in sterile fashion. After the time-out, we made our landmarks in the inframammary fold in the 5th intercostal space on the anterior axillary line. Used local anesthetic to anesthetize the skin. Using an 11 blade, I made an incision. I was able to bluntly enter into the chest. We encountered air and fluid. We then placed a 24-Green[place]ic chest tube into the chest, secured in place, connected to the [facility], and about 1 L of serous fluid was drained. The patient tolerated the procedure well. A sterile dressing was applied. cc: Mario Davila MD
[2019-08-03] MEDS: PERIDEX MT SCH (20:18)
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
--- NOTE | 2019-08-03 21:04 | Diag Imaging Result Doc PS360 ---
CT THORAX W/CONTRAST - 08/03/2019 INDICATION: RIGHT PNEUMOTHORAX,BRONCHECTASIS COMPARISON: Chest x-ray earlier 08/03/2019 FINDINGS: There is a new right chest tube with the tip at the posterior upper lobe. There is a small to moderate right hydropneumothorax of about 20%. There is advanced COPD. There is extensive bilateral heterogeneous interstitial infiltrate. Major airways are clear. There is a small to moderate left basilar pleural effusion as well. Heart size is top normal. Upper abdominal images are unremarkable. There are moderate degenerative changes of the spine. No acute or suspicious bony lesion. IMPRESSION: 1. Right chest tube in good position. There is some residual pneumothorax. Trace residual right effusion. 2. Small to moderate left pleural effusion. 3. Advanced COPD. 4. Extensive bilateral reticulonodular infiltrates compatible with atypical pneumonia and/or pulmonary edema. This exam was performed using automated exposure control, adjustment of mA or kV according to patient size, and/or use of iterative reconstruction technique Electronically signed by Joshua Jean 08/03/2019 9:02 PM
[2019-08-03] MEDS: PULMICORT INH SCH (21:48)
[2019-08-04] MEDS: ZOSYN 3.375 GM in NS 50 ML IV SCH ×4 (03:23→20:59)
[2019-08-04] MEDS: NORCO-5 PO PRN ×3 (03:23→21:02)
[2019-08-04] MEDS: XOPENEX NEB INH SCH ×4 (03:32→21:54)
[2019-08-04] MEDS: ATROVENT NEB INH SCH ×4 (03:32→21:54)
--- NOTE | 2019-08-04 06:00 | GENERAL SURGERY PROGRESS NOTE ---
DATE: 08/04/2019 SUBJECTIVE: Patient doing okay. Reviewed her CT scan. The lung is significantly more inflated, but still has a small residual pneumothorax. It looks like the chest tube is going in the fissure, but it is going posterior and superior. OBJECTIVE: Vital Signs: Patient is currently afebrile. Her vital signs are stable. General: No acute distress. Alert and interactive female who looks her stated age. HEENT: Normocephalic, atraumatic. Pupils equal, round, and reactive to light. Mucous membranes moist. Oropharynx benign. Neck: Supple. Trachea midline. Cardiovascular: Regular rate and rhythm. Lungs: Increased breath sounds noted on the right. Chest tube without air leak, but still to suction. Abdomen: Soft. Nontender and nondistended. Extremities: Moves all extremities. Neurologic: Grossly intact. Skin: No signs of jaundice. Vascular: All extremities perfused. LABORATORY: None. IMAGING: CT scan as noted above. ASSESSMENT AND PLAN: A 79-year-old female status post placement of a right-sided chest tube. Chest tube. At this time, she still has a small residual pneumothorax. We will keep the chest tube to suction. We will check a chest x-ray in the morning tomorrow. We will continue to follow her. Hopefully, this will continue to drain since she has had over a L and a half out, and will resolve the pneumothorax. cc: Mario Davila MD
[2019-08-04 06:53] LABS: INR 1.19; PROTIME 15.3 Seconds (11.0-16.0)
[2019-08-04 06:54] LABS: PTT 30.7 Seconds (22.3-41.8)
[2019-08-04 06:56] LABS: BASO# 0.05 X1000 (0.0-0.2); BASO% 0.5 % (0.0-0.8); EOS# 0.13 X1000 (0.0-0.7); EOS% 1.3 % (0.0-10.0); HEMATOCRIT 33.9 % (37.0-47.0); HEMOGLOBIN 11.3 g/dL (12.0-16.0); IMM GRAN# 0.02 X1000 (0.0-0.04); IMM GRAN% 0.2 % (0.0-0.5); LYMPH% 8.7 % (20.5-51.1); MCH 31.1 PG (27-31); MCHC 33.3 g/dL (33-37); MCV 93.4 FL (81-99); MONO% 7.8 % (1.7-9.3); MPV 10.2 FL (7.4-10.4); NEUT# 8.39 X1000 (1.4-6.5); NEUT% 81.5 % (42.2-75.2); PLT 331 X1000 (130-400); RBC 3.63 XMIL (4.2-5.4); RDW 13.9 % (11.5-14.5); WBC 10.29 X1000 (4.8-10.8)
[2019-08-04 07:10] LABS: ALB/GLOB RATIO 1.1; ALBUMIN 2.8 g/dL (3.5-5.0); CALCIUM 8.6 mg/dL (8.8-10.2); MAGNESIUM 1.6 mg/dL (1.5-2.7); POTASSIUM 4.3 mmol/L (3.5-5.1); TOTAL BILIRUBIN 0.37 mg/dL (0.20-1.00); TOTAL PROTEIN 5.4 g/dL (6.3-8.3)
--- NOTE | 2019-08-04 08:13 | EKG Report ---
Test Performed on : 08/04/2019 07:18:16 AM Test Reason : chest pain Blood Pressure : / mmHG Vent. Rate : 085 BPM Atrial Rate : 136 BPM P-R Int : 000 ms QRS Dur : 086 ms QT Int : 372 ms P-R-T Axes : 000 103 240 degrees QTc Int : 442 ms Atrial fibrillation. with premature ventricular or aberrantly conducted complexes. Rightward axis Pulmonary disease pattern Septal infarct , age undetermined Abnormal ECG When compared with ECG of 29-NOV-2018 06:54, Atrial fibrillation. has replaced Sinus rhythm. Nonspecific T wave abnormality, worse in Lateral leads Confirmed by Anastasiya HERNANDEZ, Avelino Heredia ([id number]) on 08/04/2019 1:53:01 PM
[2019-08-04] MEDS: PERIDEX MT SCH ×2 (08:52→20:59)
[2019-08-04] MEDS: PULMICORT INH SCH ×2 (10:05→21:53)
[2019-08-04] MEDS: SLOW-FE PO SCH (13:00)
--- NOTE | 2019-08-04 18:21 | PROGRESS NOTE ---
DATE: 08/04/2019 SUBJECTIVE: This patient is resting comfortably in bed. She is not having pain at this moment, we will recheck a new chest x-ray tomorrow morning to see if this is improving, and we can pull out the chest tube. Surgery department following this patient closely. I have requested an evaluation by Pulmonary Department. OBJECTIVE: Vital Signs: Temperature 98.2 degrees, pulse 89, respiratory rate 18, blood pressure 106/49. Oxygen saturation 96% on nasal cannula. HEENT: Head normocephalic. No trauma. PERRLA. Neck: Supple. No JVD. No masses. Central trachea. Chest: Decreased breath sounds on the right side with crackles and crepitus mostly at the bases. Abdomen: Soft, nontender, nondistended. No hepatosplenomegaly. Extremities: No edema. No clubbing. No cyanosis. Neurological: The patient is alert. She is oriented x3. No focal deficits. LABORATORY: WBC 10, hemoglobin 11.3, hematocrit 33.9, platelets 331,000. Sodium 132, potassium 4.3, chloride 98, bicarbonate 26, BUN 26, creatinine 1, glucose 111, calcium 8.6, albumin 2.8. ASSESSMENT AND PLAN: 1. Acute spontaneous hydropneumothorax of the right lung, status post chest tube placement, postoperative day #1. She seems to be doing better. We will continue with same management. We will get a new x-ray in the morning to evaluate her progression, surgery department on board. 2. Chronic obstructive pulmonary disease, not in exacerbation. Continue home medication and nebulizers, oxygen as needed. 3. Chronic kidney disease stage 3, stable. Continue with same management. 4. Recent treatment for pneumonia, CT scan done on 08/03/2019 showed that the right chest tube is in good position. There is some residual pneumothorax and trace residual right effusion. There is a small to moderate left pleural effusion advanced chronic obstructive pulmonary disease and an extensive bilateral reticulonodular infiltrates compatible with atypical pneumonia and/or pulmonary edema. She has been placed on antibiotics and we will continue with the same management. I have requested an evaluation by Pulmonary Department. 5. Anemia, stable continue with same treatment. 6. Deep vein thrombosis prophylaxis with sequential compression devices. cc: Jamie Hebert MD
[2019-08-04] MEDS: ADVAIR 250/50 DISKUS INH SCH (21:53)
--- NOTE | 2019-08-05 00:43 | CONSULTATION ---
DATE OF CONSULTATION: 08/04/2019 REQUESTING PROVIDER: Dr. Jamie Hebert. REASON FOR CONSULTATION: Hemopneumothorax, possible pneumonia. HISTORY OF PRESENT ILLNESS: This is a 79-year-old female with a medical history of COPD, bronchiectasis, hypertension, gastroesophageal reflux, chronic kidney disease stage 3, borderline multiple myeloma with anemia, chronic tachycardia, cor pulmonale, recurrent pneumonia, hypertriglyceridemia, hypercholesterolemia. We had been consulted one time to see this patient from 11/24 to 11/29/2018 for acute bronchiectasis, acute cor pulmonale, and pneumonia. At that time, patient already stated that she did not want to see us and she only sees Dr. Colindres in our facility. The patient presented to the ER yesterday morning with worsening shortness of breath and productive cough. Initial workup in the ER revealed acute spontaneous hydropneumothorax on the right lung. She has been admitted to the medical floor for further evaluation and management. I went to see this patient this afternoon. Right after I stepped into the room, the patient asked me, "are you Dr. Amos's nurse practitioner?" After I confirmed it, the patient stated "I don't want to see you, I don't trust Dr. Amos." As I tried to say something, patient stated again in a very firm tone, "please, I don't want to see you, I will only see Dr. Colindres." Right at this time the Respiratory Therapist walked in. So I left. PAST MEDICAL HISTORY: 1. COPD. Followed up by Dr. Colindres and Dr. Allen. 2. Bronchiectasis diagnosed since June 2018. 3. Hypertension. 4. Gastroesophageal reflux disease. 5. Chronic kidney disease stage 3. 6. Borderline multiple myeloma with anemia. 7. Chronic tachycardia. 8. Cor pulmonale. 9. Recurrent pneumonia. 10. Hypertriglyceridemia. 11. Hypercholesterolemia. PAST SURGICAL HISTORY: 1. Left wrist ORIF. 2. Left hip tibia/fibula pins and rods. 3. Tubal ligation. 4. Bronchoscopy. 5. EGD in June 2018. 6. Bone marrow biopsy on 08/02/2018. SOCIAL HISTORY: Patient has an over 50 pack-year history of tobacco use and quit 14 to 15 years ago. She drinks 2 glasses of wine daily for many years. She has no history of illicit drug use. FAMILY HISTORY: Per the E chart, positive for asthma and cancer. ALLERGIES: Codeine. REVIEW OF SYSTEMS: Unable to be obtained as patient in refused to see me. PHYSICAL EXAMINATION: Vital Signs: Temperature 98.2 degrees, blood pressure 106/49, pulse 89, respiratory rate 18, oxygen saturation 96% on nasal cannula at 2 L. Other parts of physical examination is unable to be completed as the patient refused to see me. LAB DATA: White blood cells 10.28, hemoglobin 11.3, hematocrit 33.9, platelet 331,000. Sodium 132, potassium 4.3, chloride 98, carbon dioxide 26, BUN 26, creatinine 1.0. Glucose 111. IMAGING DATA: CT thorax with contrast on 08/03/2019 showed right chest tube in good position with some residual pneumothorax, and chest residual right effusion, small to moderate left pleural effusion, advanced COPD, extensive bilateral reticular nodule infiltrates compatible with atypical pneumonia and/or pulmonary edema. ASSESSMENT AND PLAN: This is a 79-year-old female with a medical history of chronic obstructive pulmonary disease, bronchiectasis, hypertension, gastroesophageal reflux disease, chronic kidney disease, borderline multiple myeloma with anemia, chronic tachycardia, cor pulmonale, recurrent pneumonia, hypertriglyceridemia, hypercholesterolemia. She has been admitted since yesterday with acute spontaneous hydropneumothorax on the right lung. No recommendations from us at this time, as patient refused to see me or Dr. Amos. I saw on the current consult list, Dr. Stephens did make a comment that patient requested Dr. Colindres, so we will let Dr. Colindres know when he is back to work next Wednesday. Thank you for the courtesy of this consult. Dictated by ANDRES Dominguez for Lauren Amos MD cc: ANDRES Dominguez MD [facility]
[2019-08-05] MEDS: ZOSYN 3.375 GM in NS 50 ML IV SCH ×4 (03:40→23:00)
[2019-08-05] MEDS: XOPENEX NEB INH SCH ×4 (04:00→21:06)
[2019-08-05] MEDS: ATROVENT NEB INH SCH ×4 (04:00→21:06)
[2019-08-05 06:35] LABS: BASO# 0.03 X1000 (0.0-0.2); BASO% 0.3 % (0.0-0.8); EOS# 0.16 X1000 (0.0-0.7); EOS% 1.7 % (0.0-10.0); HEMOGLOBIN 10.8 g/dL (12.0-16.0); IMM GRAN# 0.02 X1000 (0.0-0.04); IMM GRAN% 0.2 % (0.0-0.5); LYMPH# 1.27 X1000 (1.2-3.4); LYMPH% 13.5 % (20.5-51.1); MCH 31.7 PG (27-31); MCHC 33.8 g/dL (33-37); MCV 93.8 FL (81-99); MONO# 0.95 X1000 (0.11-0.59); MONO% 10.1 % (1.7-9.3); NEUT# 6.96 X1000 (1.4-6.5); NEUT% 74.2 % (42.2-75.2); PLT 315 X1000 (130-400); RBC 3.41 XMIL (4.2-5.4); WBC 9.39 X1000 (4.8-10.8)
[2019-08-05 07:42] LABS: CALCIUM 8.2 mg/dL (8.8-10.2); CREATININE 1.6 mg/dL (0.5-0.9); POTASSIUM 4.3 mmol/L (3.5-5.1)
--- NOTE | 2019-08-05 08:23 | Diag Imaging Result Doc PS360 ---
EXAM: CHEST-PORTABLE INDICATION: follow up pneumothorax TECHNIQUE: One view COMPARISON: 08/03/2019 FINDINGS: There has been interval placement of a chest tube on the right. The tip projects over the medial right upper lung zone. The right-sided pneumothorax persists but has decreased in size during the interval. It is still fairly large measuring up to 30% of the right hemithorax. There is better aeration of the right lung base but there is still residual atelectasis on the right. There is stable mild atelectasis at the left lung base. No new consolidation is identified. Cardiac silhouette is stable. IMPRESSION: Interval placement of right chest tube as described with resulting decrease in size of the right pneumothorax. However, it is still fairly large. Electronically signed by Michael Bridges 08/05/2019 8:21 AM
[2019-08-05] MEDS: PERIDEX MT SCH ×2 (08:57→22:00)
[2019-08-05] MEDS: SLOW-FE PO SCH (08:59)
[2019-08-05] MEDS: PULMICORT INH SCH ×2 (09:36→21:06)
[2019-08-05] MEDS: ADVAIR 250/50 DISKUS INH SCH ×2 (09:37→19:06)
--- NOTE | 2019-08-05 11:36 | GENERAL SURGERY PROGRESS NOTE ---
DATE: 08/05/2019 Ms. Dillon is afebrile. Heart rate is 90. Blood pressure is 117/60. Diminished breath sounds on the right. No air leak is seen. Her output is now up 1700 mL so that means that she has added 400 mL since yesterday. Her chest x-ray shows improvement in her pneumothorax. The plan will be to continue with negative pressure on her chest tube. We will repeat her chest x-ray tomorrow. She desires to have a regular diet instead of a heart healthy diet. cc: Enrique Jacobson MD
[2019-08-05] MEDS: MYCOSTATIN SUSP PO SCH ×3 (12:29→22:00)
--- NOTE | 2019-08-05 14:34 | PROGRESS NOTE ---
DATE: 08/05/2019 SUBJECTIVE: This patient seems to be doing better. She is sitting at the bedside. She is not complaining of chest pain, shortness of breath at this moment. Chest x-ray shows improvement in her hemopneumothorax, but she is still has a fairly large amount of pneumothorax. Case discussed with the patient. All her questions were answered. OBJECTIVE: Vital Signs: Temperature 98.2 degrees, pulse 97, respiratory rate 18, blood pressure 104/51, oxygen saturation 95% on 2 L of nasal cannula. HEENT: Head normocephalic, no trauma. PERRLA. Neck: Supple. No JVD. No masses. Central trachea. Chest: Decreased breath sounds on the right side with some crackles and crepitus mostly at the bases. Abdomen: Soft, nontender, nondistended. No hepatosplenomegaly. Extremities: No edema, no clubbing, no cyanosis. Neurological: The patient is alert. She is oriented x3. No focal neurological deficits. LABORATORY: WBC 9.3, hemoglobin 10.8, hematocrit 32, platelet 315. Sodium 132, potassium 4.3, chloride 96, bicarbonate 26. BUN 34, creatinine 1.6, glucose 100, calcium 8.2. ASSESSMENT AND PLAN: 1. Acute spontaneous hydropneumothorax of the right lung, status post chest tube placement, postoperative day #2. She seems to be doing better. She still has a fairly large amount of pneumothorax per the x-ray done today. We will get a new x-ray in the morning. Surgery Department on board. 2. Chronic obstructive pulmonary disease, not in exacerbation. Continue home medication, nebulizer, oxygen as needed. 3. Chronic kidney disease stage III, stable. Continue with same management. This is her baseline. 4. Recent treatment for pneumonia. CT scan done on 08/03/2019 showed that the right chest tube is in good position. There is some residual pneumothorax and trace residual right effusion. There is a small to moderate left pleural effusion, advanced chronic obstructive pulmonary disease and extensive bilateral reticulonodular infiltrates compatible with atypical pneumonia and/or pulmonary edema. I will continue with intravenous antibiotics. I will continue with the same management for now. She seems to be getting better. 5. Anemia. Continue with same treatment. 6. Deep vein thrombosis prophylaxis with sequential compression devices. cc: Jamie Hebert MD
[2019-08-05] MEDS: NORCO-5 PO PRN ×2 (14:46→23:01)
[2019-08-06] MEDS: ZOSYN 3.375 GM in NS 50 ML IV SCH ×4 (03:14→21:00)
[2019-08-06] MEDS: ATROVENT NEB INH SCH ×3 (03:51→15:32)
[2019-08-06] MEDS: XOPENEX NEB INH SCH ×3 (03:51→15:32)
[2019-08-06 07:10] LABS: CALCIUM 7.4 mg/dL (8.8-10.2); CREATININE 1.6 mg/dL (0.5-0.9); POTASSIUM 4.1 mmol/L (3.5-5.1)
--- NOTE | 2019-08-06 08:34 | Diag Imaging Result Doc PS360 ---
EXAM: CHEST-PORTABLE INDICATION: pneumothorax TECHNIQUE: One view COMPARISON: 08/05/2019 FINDINGS: The right thoracostomy tube is in approximately stable position. The right-sided pneumothorax has decreased in size substantially during the interval. There is now only a trace pneumothorax at the right lung apex. Right lung is reexpanded. There is still atelectasis at the lung bases. There is stable interstitial thickening. Cardiac silhouette is stable. IMPRESSION: Interval substantial decrease in size of the right-sided pneumothorax. Electronically signed by Michael Bridges 08/06/2019 8:32 AM
--- NOTE | 2019-08-06 09:31 | GENERAL SURGERY PROGRESS NOTE ---
DATE: 08/06/2019 Ms. Dillon's chest x-ray is better. Her pneumothorax is almost completely resolved. She is without fever. Hemodynamics are good. She has bilateral breath sounds. Her drainage is about 300 mL since yesterday. It is serous in character. Her creatinine appears to be stable at 1.6. cc: Enrique Jacobson MD
[2019-08-06] MEDS: ADVAIR 250/50 DISKUS INH SCH (09:45)
[2019-08-06] MEDS: PULMICORT INH SCH (09:46)
[2019-08-06] MEDS: PERIDEX MT SCH ×2 (10:15→22:00)
[2019-08-06] MEDS: MYCOSTATIN SUSP PO SCH ×4 (10:15→22:00)
--- NOTE | 2019-08-06 10:42 | PROGRESS NOTE ---
DATE: 08/06/2019 SUBJECTIVE: The patient is sitting at the bedside. She is not complaining of chest pain or shortness of breath. X-ray showed an interval substantial decrease in size of the right-sided pneumothorax, I will ask for a new x-ray tomorrow. Surgery department on board. OBJECTIVE: Vital Signs: Temperature 98.4 degrees, pulse 104, respiratory rate 18, blood pressure 124/62, oxygen saturation 96% on 2 L of nasal cannula. HEENT: Head normocephalic. No trauma. PERRLA. Neck: Supple. No JVD. No masses. Central trachea. Chest: Decreased breath sounds at the right base with crackles and crepitus on the right side. Abdomen: Soft, nontender, nondistended. No hepatosplenomegaly. Extremities: No edema, no clubbing, no cyanosis. Neurological Examination: The patient is alert. She is oriented x3. No focal neurological deficits. Laboratory: Sodium 127, potassium 4.1, chloride 92, bicarbonate 23, BUN 36, creatinine 1.6, glucose 102, calcium 7.4. ASSESSMENT AND PLAN: 1. Acute spontaneous hydropneumothorax on the right lung, status post chest tube placement, postoperative day #3. She seems to be doing much better. X-ray looks much better compared with yesterday. Surgery on board. I will wait for recommendations. Hopefully, the chest tube has been pulled out in the next 24 hours. 2. Chronic obstructive pulmonary disease, not in exacerbation. Continue home medication, nebulizer, oxygen as needed. 3. Hyponatremia. I will give her some intravenous fluids with normal saline. 4. Chronic kidney disease stage 3, stable. This is her baseline. 5. Recent treatment for pneumonia. CT scan done on 08/03/2019 showed that the right chest tube is in good position. There is some residual pneumothorax and trace residual right effusion. There is a small to moderate left pleural effusion, advanced chronic obstructive pulmonary disease, and extensive bilateral reticulonodular infiltrates compatible with atypical pneumonia and/or pulmonary edema. For now, we will continue with intravenous antibiotics. I will continue with the same management for now. She seems to be doing better. 6. Anemia. Continue with the same treatment. 7. Deep vein thrombosis prophylaxis with sequential compression devices. cc: Jamie Hebert MD
[2019-08-06] MEDS: SPIRIVA INH SCH (11:13)
[2019-08-06] MEDS: SLOW-FE PO SCH (12:16)
[2019-08-06] MEDS: NS 500 ML IV SCH ×2 (12:18→12:29)
--- NOTE | 2019-08-06 17:25 | Diag Imaging Result Doc PS360 ---
EXAM: CHEST-PORTABLE INDICATION: increased sob TECHNIQUE: One view COMPARISON: 08/06/2019 FINDINGS: The right thoracostomy tube is in stable position. There is a small residual right apical pneumothorax. It may be slightly larger than the previous study. However, it is still around 5% of the right hemithorax. The small difference could be due to differences in inspiration. Bilateral interstitial thickening and bibasilar atelectasis is approximately stable. There is likely a small left pleural effusion that is stable. No new consolidation is identified. Cardiac silhouette is stable. IMPRESSION: Residual small right apical pneumothorax that may be marginally larger than the previous study but is still around 5% of the right hemithorax. Stable chest, otherwise. Electronically signed by Michael Bridges 08/06/2019 5:23 PM
[2019-08-06] MEDS: NORCO-5 PO PRN (22:31)
[2019-08-07] MEDS: ATROVENT NEB INH SCH ×5 (02:48→21:30)
[2019-08-07] MEDS: ADVAIR 250/50 DISKUS INH SCH ×3 (02:48→21:30)
[2019-08-07] MEDS: XOPENEX NEB INH SCH ×5 (02:48→21:30)
[2019-08-07] MEDS: PULMICORT INH SCH ×3 (02:49→21:30)
[2019-08-07] MEDS ORDERED: DULCOLAX PR ONE (03:51)
[2019-08-07] MEDS ORDERED: G.I. COCKTAIL PO ONE (03:52)
[2019-08-07] MEDS: ZOSYN 3.375 GM in NS 50 ML IV SCH ×4 (04:20→20:40)
--- NOTE | 2019-08-07 05:52 | Diag Imaging Result Doc PS360 ---
EXAM: CHEST-PORTABLE HISTORY: dyspnea TECHNIQUE: Portable chest single view COMPARISON: 08/06/2019 FINDINGS: There are small bilateral pleural effusions. Pulmonary edema persists. There is basilar atelectasis versus tiny infiltrates. The overall appearance is similar to the prior exam. No change in the right chest tube. There is a small right pneumothorax similar to the prior exam. IMPRESSION: No interval improvement. Electronically signed by Anuel Phillips 08/07/2019 5:50 AM
--- NOTE | 2019-08-07 06:18 | GENERAL SURGERY PROGRESS NOTE ---
DATE: 08/07/2019 SUBJECTIVE: Patient seems to be doing better, and seems to be breathing better. OBJECTIVE: Vital signs: Patient is currently afebrile. Her vital signs are stable. In's and out's, chest tube still has 350 recorded for the last 24 hours. General: No acute distress. HEENT: Normocephalic, atraumatic. Pupils equal, round, and reactive to light. Mucous membranes moist. Oropharynx benign. Neck: Supple. Trachea midline. Cardiovascular: Regular rate and rhythm. Lungs: Grossly clear. No air leak noted. Chest tube still with significant serous drainage. Abdomen: Soft. Nontender and nondistended. Extremities: Moves all extremities. Neurologic: Grossly intact. Skin: No signs of jaundice. Vascular: All extremities perfused. LABORATORY: None this morning. Chest x-ray reviewed. Bedside film, official report is pending but it looks like her lungs inflated. She still has some fluid down on the right side. ASSESSMENT/PLAN: A 79-year-old female with right-sided hydropneumothorax. Right-sided hydropneumothorax. At this time, the patient is still having significant amount of output with over 300 out per day. She is still having issues with a small tiny apical pneumothorax. We will follow up with the official report of today's chest x-ray. If there is still apical pneumothorax, we will put her back to wall suction because she is to water-seal right now. We will keep the chest tube in until the amount of drainage decreases. I suspect if we remove the chest tube at this point, she will reaccumulate fluid relatively rapidly and have to have another chest tube placed. So again, would like to hold off until total output has decreased. cc: Mario Davila MD
[2019-08-07 06:54] LABS: BASO# 0.05 X1000 (0.0-0.2); BASO% 0.6 % (0.0-0.8); EOS# 0.21 X1000 (0.0-0.7); EOS% 2.3 % (0.0-10.0); HEMATOCRIT 30.1 % (37.0-47.0); HEMOGLOBIN 10.4 g/dL (12.0-16.0); IMM GRAN# 0.02 X1000 (0.0-0.04); IMM GRAN% 0.2 % (0.0-0.5); LYMPH# 1.23 X1000 (1.2-3.4); LYMPH% 13.7 % (20.5-51.1); MCH 31.7 PG (27-31); MCHC 34.6 g/dL (33-37); MCV 91.8 FL (81-99); MONO# 0.88 X1000 (0.11-0.59); MONO% 9.8 % (1.7-9.3); MPV 10.2 FL (7.4-10.4); NEUT# 6.59 X1000 (1.4-6.5); NEUT% 73.4 % (42.2-75.2); PLT 363 X1000 (130-400); RBC 3.28 XMIL (4.2-5.4); RDW 13.4 % (11.5-14.5); WBC 8.98 X1000 (4.8-10.8)
[2019-08-07 07:10] LABS: CREATININE 1.5 mg/dL (0.5-0.9); POTASSIUM 4.2 mmol/L (3.5-5.1)
--- NOTE | 2019-08-07 08:03 | PROGRESS NOTE ---
DATE: 08/07/2019 SUBJECTIVE: The patient is resting comfortably in bed. She is not complaining of chest pain or shortness of breath. X-ray showed no changes compared with yesterday. There are small bilateral pleural effusions. Pulmonary edema persist. There is bibasilar atelectasis versus tiny infiltrates. No changes in the right chest tube. There is a small right pneumothorax, similar to prior exam. Surgery Department evaluated this patient, and it looks like this patient is still draining a significant amount of output, over 300 mL per day. Will continue with the same management for now. OBJECTIVE: Vital Signs: Temperature 98.6 degrees, pulse 100, respiratory rate 18, blood pressure 126/75, oxygen saturation 96 on room air. HEENT: Head normocephalic. No trauma. PERRLA. Neck: Supple. No JVD. No masses. Central trachea. Chest: Decreased breath sounds at the right base with crackles and crepitus on the right side, some scattered crepitus on the left. Abdomen: Soft, nontender, nondistended. No hepatosplenomegaly. Extremities: No edema, no clubbing, no cyanosis. Neurological: The patient is alert. She is oriented x3. No focal neurological deficits. LABORATORY DATA: WBC 8.9, hemoglobin 10.4, hematocrit 30.1, platelets 363,000. Sodium 132, potassium 4.2, chloride 97, bicarbonate 24, BUN 31, creatinine 1.5, glucose 100, calcium 8. ASSESSMENT AND PLAN: 1. Acute spontaneous hydropneumothorax on the right lung, status post chest tube placement, postoperative day #4. She seems to be doing better. X-ray looks about the same compared with yesterday. She is still having significant fluid output from the chest tube. Surgery on board. I will continue following their recommendations. 2. Chronic obstructive pulmonary disease, not in exacerbation. Continue home medication. Nebulizer and oxygen as needed. 3. Hyponatremia, better. 4. Chronic kidney disease stage 3, stable. This is her baseline. 5. Recent treatment for pneumonia. CT scan done on 08/03/2019 showed that the right chest tube is in good position. She had some residual pneumothorax and residual right effusion. Showed also [id number] pleural effusion, advanced chronic obstructive pulmonary disease, and extensive bilateral reticulonodular infiltrates compatible with atypical pneumonia and/or pulmonary edema. For now, I will continue with intravenous antibiotics. She has been on long- term antibiotics at home as well from previous streptococcal pneumonia bacteremia. 6. History of streptococcal pneumoniae bacteremia. As above. 7. Anemia. Continue with the same management. 8. Deep vein thrombosis prophylaxis with sequential compression devices. cc: Jamie Hebert MD
[2019-08-07] MEDS: MYCOSTATIN SUSP PO SCH ×4 (09:25→20:41)
[2019-08-07] MEDS: MIRALAX PO SCH (09:25)
[2019-08-07] MEDS: SLOW-FE PO SCH (09:26)
[2019-08-07] MEDS: PERIDEX MT SCH ×2 (09:27→20:40)
[2019-08-07] MEDS: SPIRIVA INH SCH (09:48)
[2019-08-07] MEDS: MUCOMYST 20% INH SCH (21:30)
[2019-08-07] MEDS: NORCO-5 PO PRN (21:38)
--- NOTE | 2019-08-07 22:51 | PULMONOLOGY CONSULTATION ---
DATE: 08/07/2019 REASON FOR CONSULTATION: Hydropneumothorax. HISTORY OF PRESENT ILLNESS: Ms. Dillon is a 79-year-old white female with COPD and bronchiectasis who has had increased cough and sputum production and has been treated with quinolones as well. The patient presented to the emergency room 08/03/2019 with significant worsening of shortness of breath. A chest x-ray was performed which revealed a hydropneumothorax. The patient underwent CT scan of the thorax following chest tube placement, which reveals some residual pneumothorax and trace right effusion with a small to moderate left effusion, patchy bilateral infiltrates, and advanced COPD. Blood cultures have been obtained, which are negative. Sputum cultures were obtained, which revealed sparse growth of normal paola along with a Nocardia-like organism. Clinically, she reports she is feeling better with the chest tube. She continues to have a wet cough but denies significant sputum production. PAST MEDICAL HISTORY/PROBLEM LIST: 1. Myeloma by bone marrow biopsy 08/02/2018. 2. Chronic obstructive pulmonary disease. 3. Bronchiectasis with bronchoscopy performed by Dr. Mark Allen revealing Pseudomonas aeruginosa and Aspergillus niger. 4. Streptococcal pneumonia with bacteremia in November of this year. She had a new dense infiltrate in the mid and right lower lobe on that admission. She has been maintained on penicillin per Dr. Garret Crowder. 5. 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 Her IgG level was normal. 6. Hypertension. 7. Gastroesophageal reflux disease. 8. Chronic kidney disease. 9. Cor pulmonale. 10. Dyslipidemia. 11. History of food impaction requiring an EGD. 12. Status post left hip surgery. 13. Tubal ligation. SOCIAL HISTORY: Nonsmoker for approximately 15 years. She does drink wine. FAMILY HISTORY: Noncontributory to current presentation. REVIEW OF SYSTEMS: As noted in the HPI. PHYSICAL EXAMINATION: General: Reveals a well-developed, well-nourished female with a BMI of 18.5. She is resting comfortably in no distress. Vital signs: BP 119/70, heart rate 102, respiratory rate 16, ox saturation 99% on 2 L per nasal cannula. HEENT: Pupils are equal and reactive. Oropharynx is clear. Neck: Supple. Chest: Reveals scattered rhonchi bilaterally. She has a chest tube in the right hemithorax. No air leak is identified. There is serous fluid in her chest tube. Cardiac Exam: S1-S2. Abdomen: Soft. Extremities: Without edema. LABORATORY DATA: Sodium 132, potassium 4.2, chloride 97, bicarbonate 24, BUN 31, creatinine 1.5. White blood count 8.98, hemoglobin 10.4, platelet count 363,000. IMPRESSION: A 79-year-old with 1. Spontaneous pneumothorax with hydropneumothorax on chest x-ray. 2. Bronchiectasis. 3. Acute hypoxemic respiratory failure. 4. Chronic kidney disease. RECOMMENDATIONS: 1. Continue chest tube management per General Surgery. She continues to have significant serous drainage. 2. Continue bronchial hygiene. 3. Continue current antibiotic regimen, which will cover Pseudomonas as well as pneumococcus. Etiology for ongoing penicillin use is not completely clear. 4. We will add Mucomyst for bronchial hygiene. 5. Continue oxygen for hypoxic respiratory failure. cc: Kamar Colindres MD
[2019-08-08] MEDS: ZOSYN 3.375 GM in NS 50 ML IV SCH ×4 (02:35→21:23)
[2019-08-08] MEDS: ATROVENT NEB INH SCH ×4 (03:25→23:14)
[2019-08-08] MEDS: XOPENEX NEB INH SCH ×4 (03:26→23:14)
[2019-08-08 06:57] LABS: CALCIUM 8.5 mg/dL (8.8-10.2); CREATININE 1.4 mg/dL (0.5-0.9); POTASSIUM 4.4 mmol/L (3.5-5.1)
--- NOTE | 2019-08-08 07:26 | Diag Imaging Result Doc PS360 ---
EXAM: CHEST-PORTABLE INDICATION: dyspnea TECHNIQUE: One view COMPARISON: 08/07/2019 FINDINGS: Right chest tube is in stable position. The small right pneumothorax is stable. Small pleural effusions and bibasilar subsegmental atelectasis and/or infiltrates are stable. Interstitial edema is stable. No new consolidation is identified. Cardiac silhouette is stable. IMPRESSION: Stable chest. Electronically signed by Michael Bridges 08/08/2019 7:23 AM
[2019-08-08] MEDS: SLOW-FE PO SCH ×2 (09:40→09:45)
[2019-08-08] MEDS: PERIDEX MT SCH ×2 (09:40→21:23)
[2019-08-08] MEDS: MIRALAX PO SCH ×2 (09:40→21:23)
[2019-08-08] MEDS: MYCOSTATIN SUSP PO SCH ×4 (09:40→21:23)
--- NOTE | 2019-08-08 10:42 | GENERAL SURGERY PROGRESS NOTE ---
DATE: 08/08/2019 SUBJECTIVE: Patient seems to be doing okay. Her chest tube was placed back to suction by Dr. Colindres. The chest x-ray yesterday showed a small apical pneumothorax. She is complaining a little bit of shortness of breath. OBJECTIVE: Vital Signs: Patient is currently afebrile. Vital signs are stable. She does have some mild tachycardia with a heart rate of 116. General: No acute distress. HEENT: Normocephalic, atraumatic. Pupils equal, round, and reactive to light. Mucous membranes moist. Oropharynx benign. Neck: Supple. Trachea midline. Cardiovascular: Mild tachycardia. Lungs: Increased breath sounds noted bilaterally. No air leak. Abdomen: Soft, nontender, and nondistended. Extremities: Moves all extremities. Neurologic: Grossly intact. Skin: No signs of jaundice. Vascular: All extremities perfused. LABORATORY: None. DIAGNOSTIC: Chest x-ray pending. ASSESSMENT AND PLAN: A 79-year-old female with spontaneous right hydropneumothorax. Right hydropneumothorax. At this time, continue chest tube. We placed it back to suction. We will follow up with morning chest x-ray. May need to consider replacement of the chest tube. I think it is probably a fissure and may not be able to accomplish everything, but I think the patient is somewhat hesitant. We will continue to follow, and continue to monitor. cc: Mario Davila MD
--- NOTE | 2019-08-08 10:56 | GENERAL SURGERY PROGRESS NOTE ---
DATE: 08/08/2019 ADDENDUM: Reviewed chest x-ray at the bedside. It looks stable, but still has pneumothorax. I discussed with the patient options. She wants to hold off on going to the operating room right now, but wants to try to give it another day. If chest x-ray tomorrow still has a pneumothorax then we will make her NPO, and plan on repositioning the chest tube in the operating room tomorrow. cc: Mario Davila MD MTDD
[2019-08-08] MEDS: SPIRIVA INH SCH (11:19)
[2019-08-08] MEDS: ADVAIR 250/50 DISKUS INH SCH ×2 (11:19→20:26)
[2019-08-08] MEDS: MUCOMYST 20% INH SCH ×2 (11:20→20:25)
[2019-08-08] MEDS: PULMICORT INH SCH ×2 (11:20→20:25)
[2019-08-08] MEDS ORDERED: DULCOLAX PR ONE (11:42)
--- NOTE | 2019-08-08 16:05 | PROGRESS NOTE ---
DATE: 08/08/2019 SUBJECTIVE: Patient is resting comfortably in bed. No big changes compared with yesterday. Pulmonary Department and Surgery Department on board. She still has the chest tube. I will continue following recommendations. OBJECTIVE: Vital Signs: Temperature 98.1 degrees, pulse 84, respiratory rate 16, blood pressure 123/61, oxygen saturation 100% on 2 L of nasal cannula. HEENT: Head normocephalic. No trauma. PERRLA. Neck: Supple. No JVD. No masses. Central trachea. Chest: Decreased breath sounds at the right base with some crackles and crepitus. Also some scattered crepitus on the left. Abdomen: Soft, nontender, nondistended. No hepatosplenomegaly. Extremities: No edema. No clubbing. No cyanosis. Neurological: The patient is alert. She is oriented x3. No focal neurological deficits. LABORATORY: Sodium 136, potassium 4.4, chloride 100, bicarbonate 23, BUN 27, creatinine 1.4, glucose 99, calcium 8.5. ASSESSMENT AND PLAN: 1. Acute spontaneous hydropneumothorax of the right lung, status post chest tube placement, postoperative day #5. She seems to be doing better. She is still having some issues with the tube with drainage. Surgery Department on board. I will continue following recommendations. 2. Chronic obstructive pulmonary disease, not in exacerbation. Continue home medication. Pulmonary Department on board. 3. Hyponatremia, stable. 4. Chronic kidney disease stage 3, stable. This is her baseline. 5. Recent treatment for pneumonia. CT scan done on 08/03/2019 showed some infiltrates compatible with atypical pneumonia and/or pulmonary edema. For now, I will continue with the same management. 6. History of streptococcal pneumonia bacteremia. Apparently she has been on long-term antibiotics at home for this problem. I will discuss the case once this patient is really close to be discharged with Infectious Disease Department so they can monitor this patient as an outpatient. 7. Anemia. Continue with same management. 8. Deep vein thrombosis prophylaxis with sequential compression devices. 9. Constipation. I will add MiraLAX to her medications. cc: Jamie Hebert MD
[2019-08-08] MEDS: NORCO-5 PO PRN (21:22)
--- NOTE | 2019-08-08 21:45 | PULMONOLOGY PROGRESS NOTE ---
DATE: 08/08/2019 SUBJECTIVE: The patient is awake, alert, and conversant. She reports her sputum production has diminished with addition of acetylcysteine. OBJECTIVE: Vital Signs: The patient has been afebrile for the last 24 hours. Blood pressure 123/61, heart rate 84, respiratory rate 16, oxygen saturation 100% on 2 L per nasal cannula. HEENT: Pupils are equal and reactive. Oropharynx appears clear. Neck: Supple. Chest: Reveals crackles in both lung bases. No rhonchi present today. Cardiac exam: S1, S2. Abdomen: Soft. Extremities: Without edema. LABORATORIES: Chest x-ray reveals tiny right-sided pneumothorax, which is unchanged. No new microbiology data. No new CBC. Sodium 136, potassium 4.4, chloride 100, bicarbonate 23, BUN 27, creatinine 1.4. IMPRESSION: A 79-year-old with: 1. Hydropneumothorax with chest tube in position. 2. Bronchiectasis. 3. Acute hypoxemic respiratory failure. 4. Chronic kidney disease. PLAN: 1. Continue chest tube management per general surgery. I have not seen an air leak. Hopefully, chest tube can be clamped and possibly discharged in the next few days. 2. Continue bronchial hygiene. 3. Continue current antibiotic regimen to cover Pseudomonas as well as pneumococcus. 4. Continue oxygen therapy. cc: Kamar Colindres MD
[2019-08-09] MEDS: XOPENEX NEB INH SCH ×4 (03:48→21:19)
[2019-08-09] MEDS: ATROVENT NEB INH SCH ×4 (03:48→21:18)
[2019-08-09] MEDS: ZOSYN 3.375 GM in NS 50 ML IV SCH ×4 (05:22→18:49)
[2019-08-09 07:10] LABS: CREATININE 1.1 mg/dL (0.5-0.9); POTASSIUM 4.3 mmol/L (3.5-5.1)
--- NOTE | 2019-08-09 07:21 | Diag Imaging Result Doc PS360 ---
EXAM: CHEST-PORTABLE HISTORY: dyspnea TECHNIQUE: Portable chest single view COMPARISON: 08/08/2019 FINDINGS: No change in the right-sided chest tube. There is a small right-sided pneumothorax. This is similar in size to the prior study. There are increased interstitial markings in the lung similar to the prior exam. There are also small pleural effusions. IMPRESSION: Stable chest. Electronically signed by Anuel Phillips 08/09/2019 7:19 AM
[2019-08-09] MEDS: MUCOMYST 20% INH SCH ×2 (08:01→21:19)
[2019-08-09] MEDS: PULMICORT INH SCH ×2 (08:01→21:18)
[2019-08-09] MEDS: SPIRIVA INH SCH (08:03)
[2019-08-09] MEDS: ADVAIR 250/50 DISKUS INH SCH ×2 (08:03→21:19)
--- NOTE | 2019-08-09 09:33 | GENERAL SURGERY PROGRESS NOTE ---
DATE: 08/09/2019 SUBJECTIVE: Patient seems to be doing okay. She was transferred to the room on the 4th floor. Unfortunately, I do not think that the suction tubing was working so I removed the chest tube off of suction and placed it to water seal. She is otherwise doing okay. She is still having a good amount of drainage out of her chest tube. OBJECTIVE: Vital Signs: Patient is currently afebrile. Her vital signs are stable. General: No acute distress. HEENT: Normocephalic, atraumatic. Pupils equal, round, and reactive to light. Mucous membranes moist. Oropharynx benign. Neck: Supple. Trachea midline. Cardiovascular: Regular rate and rhythm. Lungs: Grossly clear. Chest: No air leak noted. Chest tube still draining serosanguineous fluid. Abdomen: Soft, nontender, and nondistended. Extremities: Moves all extremities. Neurologic: Grossly intact. Skin: No signs of jaundice. Vascular: All extremities perfused. LABORATORY: None this morning as of yet. Chest x-ray still pending. ASSESSMENT AND PLAN: A 79-year-old female with spontaneous hydropneumothorax on the right. Spontaneous hydropneumothorax. At this time, given the malfunction with the suction, we placed her back to water seal. We will follow up with chest x-ray. She is still draining over 300 mL out every day of serous fluid so we will have to keep the chest tube in regardless, until this output decreases. May need to consider something like Lasix or other kind of diuretics to try to get some of the fluid out. If it continues to have this much output, may need to consider more aggressive surgical intervention but at this time, continue current treatment. Follow up with chest x-ray. cc: Mario Davila MD
[2019-08-09] MEDS: PERIDEX MT SCH ×2 (09:37→22:19)
[2019-08-09] MEDS: MYCOSTATIN SUSP PO SCH ×4 (09:37→22:19)
[2019-08-09] MEDS: MIRALAX PO SCH ×2 (09:37→22:19)
[2019-08-09] MEDS ORDERED: LASIX IV ONE (10:15)
[2019-08-09] MEDS: SLOW-FE PO SCH (10:24)
--- NOTE | 2019-08-09 14:52 | PROGRESS NOTE ---
DATE: 08/09/2019 SUBJECTIVE: No changes compared with yesterday. I will give her a dose of Lasix to try to improve her urine output and try to decrease the amount of edema at the level of the lungs. Pulmonary department and surgery department on board. OBJECTIVE: Vital Signs: Temperature 97.6 degrees, pulse 90, respiratory rate 18, blood pressure 128/69, oxygen saturation 98 on 2 L of nasal cannula. HEENT: Head normocephalic. No trauma. PERRLA. Neck: Supple. No JVD. No masses. Central trachea. Chest: Decreased breath sounds at the right base with some crepitus and scattered crackles. Abdomen: Soft, nontender, nondistended. No hepatosplenomegaly. Extremities: No edema, no clubbing, no cyanosis. Neurological Examination: The patient is alert. He is oriented x3. No focal neurological deficits. Laboratory: Sodium 133, potassium 4.3, chloride 97, bicarbonate 24, BUN 23, creatinine 1.1, glucose 89, calcium 9. ASSESSMENT AND PLAN: 1. Acute spontaneous hydropneumothorax of the right lung, status post chest tube placement, postoperative day #6. She feels better but she is still having some issues with the tube and drainage. She has been draining at least more than 300 mL daily. We will continue following the recommendations of surgery department. 2. Chronic obstructive pulmonary disease, not in exacerbation. Continue home medication. Pulmonary department on board. 3. Hyponatremia, stable. 4. Chronic kidney disease stage 3, stable. This is her baseline. 5. Recent treatment for pneumonia. CT scan done on 08/03/2019 showed some infiltrates compatible with atypical pneumonia and/or pulmonary edema. For now, we will continue with same management. I will give her a dose of Lasix. 6. History of streptococcal pneumonia bacteremia. Apparently, she has been on long-term antibiotics at home for this problem. I will discuss the case with infectious disease department once this patient is really close to being discharged. 7. Anemia. Continue with the same management. 8. Deep vein thrombosis prophylaxis with sequential compression devices. 9. Constipation. Continue with MiraLAX. cc: Jamie Hebert MD
--- NOTE | 2019-08-09 20:29 | GENERAL SURGERY PROGRESS NOTE ---
DATE: 08/09/2019 I reviewed chest x-ray again from this morning. She still has a pneumothorax. It has been several days and it has not resolved. I believe the chest tube is in the fissure. It is able to drain fluid but is not able to drain all the air. I will plan on taking her to the OR tomorrow for a video-assisted thorascopic surgery to try to reposition this chest tube in more advantageous position for pneumothorax. Discussed with patient the risks, benefits and alternatives of the procedure risks including, but not limited to bleeding, infection, risk of anesthesia, risk of injury to the lung and surrounding tissue discussed. We will plan on procedure tomorrow. She will be NPO after midnight. cc: Mario Davila MD
[2019-08-09] MEDS: NORCO-5 PO PRN (22:19)
--- NOTE | 2019-08-10 01:21 | PULMONOLOGY PROGRESS NOTE ---
DATE: 08/09/2019 SUBJECTIVE: The patient is awake and alert. The patient reports her sputum production continues to decrease. She denies shortness of breath at rest. OBJECTIVE: Vital Signs: Blood pressure 128/69, heart rate 90, respiratory rate 18, oxygen saturation 98% on 2 L per nasal cannula. HEENT: Pupils are equal and reactive. Oropharynx appears clear. Neck: Supple. Chest: Reveals chest tube in the right hemithorax. No air leak identified. Crackles in both lung bases. Cardiac: S1, S2. Abdomen: Soft. Extremities: Without edema. LABORATORY DATA: Sodium 133, potassium 4.3, chloride 97, BUN 23, creatinine 1.1. Chest x-ray reveals continued small pneumothorax with small bilateral effusions. IMPRESSION: A 79-year-old with: 1. Acute hypoxemic respiratory failure. 2. Bronchiectasis. 3. Hydropneumothorax. 4. Chronic kidney disease with increased kidney parameters. PLAN: 1. Anticipate repositioning of chest tube tomorrow. 2. Continue current antibiotic regimen. 3. Continue bronchial hygiene. 4. Continue oxygen. cc: Kamar Colindres MD
[2019-08-10] MEDS: ZOSYN 3.375 GM in NS 50 ML IV SCH ×4 (01:37→23:15)
[2019-08-10] MEDS: ATROVENT NEB INH SCH ×4 (03:15→21:43)
[2019-08-10] MEDS: XOPENEX NEB INH SCH ×4 (03:15→21:43)
[2019-08-10 06:50] LABS: BASO# 0.04 X1000 (0.0-0.2); BASO% 0.4 % (0.0-0.8); EOS# 0.17 X1000 (0.0-0.7); EOS% 1.8 % (0.0-10.0); HEMOGLOBIN 11.1 g/dL (12.0-16.0); LYMPH# 1.46 X1000 (1.2-3.4); LYMPH% 15.9 % (20.5-51.1); MCH 31.2 PG (27-31); MCHC 33.6 g/dL (33-37); MCV 92.7 FL (81-99); MONO# 0.88 X1000 (0.11-0.59); MONO% 9.6 % (1.7-9.3); MPV 9.6 FL (7.4-10.4); NEUT# 6.65 X1000 (1.4-6.5); NEUT% 72.3 % (42.2-75.2); PLT 429 X1000 (130-400); RBC 3.56 XMIL (4.2-5.4); RDW 13.5 % (11.5-14.5)
--- NOTE | 2019-08-10 07:05 | Diag Imaging Result Doc PS360 ---
EXAM: CHEST-PORTABLE 08/10/2019 HISTORY: dyspnea TECHNIQUE: AP portable at 0552 COMMENT: There are bilateral pleural effusions. The effusions may be slightly smaller than on 08/09/2019. There continues to be interstitial opacity bilaterally with some areas of alveolar opacification in the lower lobes. The right chest tube is still in place and there is still an apical pneumothorax on the right. This measures over 12 mm in the apex compared to 10 mm at the time of the previous study. IMPRESSION: 1. Slightly enlarged right pneumothorax. 2. Bilateral pleural effusions, slightly improved. 3. Pulmonary edema plus minus pneumonia. Electronically signed by Neno Maldonado 08/10/2019 7:03 AM
[2019-08-10 07:07] LABS: CALCIUM 8.9 mg/dL (8.8-10.2); CREATININE 1.1 mg/dL (0.5-0.9); POTASSIUM 3.9 mmol/L (3.5-5.1)
[2019-08-10] MEDS: PULMICORT INH SCH ×2 (08:18→21:43)
[2019-08-10] MEDS: MUCOMYST 20% INH SCH ×2 (08:18→21:44)
[2019-08-10] MEDS: SPIRIVA INH SCH (08:18)
[2019-08-10] MEDS: ADVAIR 250/50 DISKUS INH SCH ×2 (08:19→21:44)
--- NOTE | 2019-08-10 10:14 | GENERAL SURGERY PROGRESS NOTE ---
DATE: 08/10/2019 SUBJECTIVE: Patient seems to be doing well. We did discuss yesterday repositioning of the chest tube in the operating room since it is not draining the pneumothorax. She is still having significant output out of it with 475 out yesterday and 100 out so far. OBJECTIVE: Vital Signs: Patient is currently afebrile. Vital signs stable. General: No acute distress. HEENT: Normocephalic, atraumatic. Pupils equal, round, reactive to light. Mucous membranes moist. Oropharynx benign. Neck: Supple. Trachea midline. Cardiovascular: Regular rate and rhythm. Lungs: Grossly clear. No air leak noted to chest tube. Abdomen: Soft, nontender, and nondistended. Extremities: Moves all extremities. Neurologic: Grossly intact. Skin: No signs of jaundice. Vascular: All extremities perfused. LABORATORY: Reviewed from yesterday. Chest x-ray reviewed from yesterday. ASSESSMENT AND PLAN: A 79-year-old female with a right-sided hydropneumothorax. Right-sided hydropneumothorax. At this time, the chest tube is draining the fluid, but has not re- expand the lung fully. Given this fact, we will plan on taking her to the operating room to try to reposition the chest tube in a more advantageous position. This was discussed with the patient. The risks, benefits, and alternatives for the procedure were discussed, and documented in the chart yesterday. We will proceed with surgery today. She is on scheduled antibiotics. cc: Mario Davila MD
--- NOTE | 2019-08-10 13:13 | PROGRESS NOTE ---
DATE: 08/10/2019 SUBJECTIVE: No big changes compared with yesterday. She is still having some draining through the chest tube, and has not re-expanded the lung completely. It looks like the plan is to take her to the OR to reposition the chest tube. OBJECTIVE: Vital Signs: Temperature 98 degrees, pulse 106, respiratory rate 16, blood pressure 130/68, oxygen saturation 100% on 2 L of nasal cannula. HEENT: Head normocephalic. No trauma. PERRLA. Neck: Supple. No JVD. No masses. Central trachea. Chest: Decreased breath sounds at the right base with some crepitus and scattered crackles. Abdomen: Soft, nontender, nondistended. No hepatosplenomegaly. Extremities: No edema, no clubbing, no cyanosis. Neurological: The patient is alert. She is oriented x3. No focal deficits. LABORATORY DATA: WBC 9.2, hemoglobin 11.1, hematocrit 33, platelets 429,000. Sodium 132, potassium 3.9, chloride 95, bicarbonate 28, BUN 21, creatinine 1.1, glucose 89, calcium 8.9. ASSESSMENT AND PLAN: 1. Acute spontaneous hydropneumothorax of the right lung, status post chest tube placement, postoperative day #7. She seems to be stable, but she has been draining fluids through the tube, and the lung has not been completely re-expanded. The plan hopefully would be to go to the operating room and reposition the chest tube. Surgery and Pulmonary Department on board. 2. Chronic obstructive pulmonary disease, not in exacerbation. Continue with home medications. 3. Hyponatremia, stable. 4. Chronic kidney disease stage 3, stable. This is her baseline. 5. Recent treatment for pneumonia. CT scan of the chest done on 08/03/2019 showed some infiltrates compatible with atypical pneumonia and/or pulmonary edema. I do believe this is more related to pulmonary edema. Will continue with the same management. She is getting antibiotics. 6. History of streptococcal pneumonia bacteremia. Apparently, she has been on long-term antibiotics at home for this problem. I will discuss the case with Infectious Disease Department once the patient is really close to being discharged. 7. Anemia. Continue with the same management. 8. Deep vein thrombosis prophylaxis with sequential compression devices. 9. Constipation. Continue with MiraLAX. cc: Jamie Hebert MD
[2019-08-10] MEDS: MIRALAX PO SCH ×2 (14:41→23:16)
[2019-08-10] MEDS: MYCOSTATIN SUSP PO SCH ×3 (15:07→23:11)
[2019-08-10] MEDS: PERIDEX MT SCH ×2 (15:07→23:12)
[2019-08-10] MEDS: SLOW-FE PO SCH (15:29)
[2019-08-10] MEDS ORDERED: SENSORCAINE 0.25%/EPI 1:200,000 ONE (15:40)
[2019-08-10] MEDS ORDERED: VERSED ONE (15:53)
[2019-08-10] MEDS ORDERED: FENTANYL ONE (16:03)
[2019-08-10] MEDS ORDERED: ZEMURON ONE (16:25)
[2019-08-10] MEDS ORDERED: BRIDION ONE (16:28)
[2019-08-10] MEDS ORDERED: LR 500 ML ONE (17:16)
[2019-08-10] MEDS: DILAUDID ONE ×2 (17:16→17:19)
[2019-08-10] MEDS: NORCO-5 PO PRN (19:11)
--- NOTE | 2019-08-10 22:34 | OPERATIVE NOTE ---
PROCEDURE DATE: 08/10/2019 PREOPERATIVE DIAGNOSIS: Persistent right hydropneumothorax. POSTOPERATIVE DIAGNOSIS: Persistent right hydropneumothorax. PROCEDURES: 1. Right-sided video-assisted thoracoscopic surgery decortication. 2. Right-sided chest tube placement (28-Divehi chest tube). SURGEON: Mario Davila MD. TRAVEL INFORMATION CENTER SUPERVISOR: None. ANESTHESIA: General endotracheal. FINDINGS: Some adhesions to the lung. No masses inside the chest that I could easily visualize. There was 300 mL of fluid drained from the chest. ESTIMATED BLOOD LOSS: 5 mL COMPLICATIONS: None. SPECIMENS REMOVED: None.Drains: 28-Divehi chest tube. BRIEF HISTORY: A 79-year-old female who had a chest tube placed for right hydropneumothorax. It drained a significant amount of fluid, but her pneumothorax did seem to resolve. It was in the fissure of the lung. We were not able to fix the pneumothorax. It was felt that need to reposition the chest tube into a more advantageous position to resolve the pneumothorax. The risks, benefits, and alternatives were discussed. All questions answered. DESCRIPTION OF PROCEDURE: After informed consent was obtained, the patient was brought to the operative theatre, transferred to the operative table, and placed in the supine position. General endotracheal anesthesia was then performed without complication. We did place a dual-lumen ET tube with bronchoscopy as guidance. We were able to occlude the right side. We then repositioned the patient to have her right side up. We prepped and draped the right chest in a standard fashion. After a formal time-out confirming patient and procedure, we turned our attention to the right chest, where we removed the previous chest tube by cutting the sutures and removing it in a gentle continuous motion. We then made a new incision more posterior but still in the 5th intercostal space. We made a decision to place a trocar. We placed a camera into the chest. There were some adhesions and fluid, but I did not see any pleural masses from the visualized aspect that I could see. I did do some blunt decortication for some adhesions that were located posteriorly. Once we had done this, we removed the trocar using a [place] clamp. We were able to direct a 28-Divehi chest tube with extra holes cut into it anterior and posterior. We placed the trocar back into the initial trocar site and confirmed that it was heading superior and posteriorly and in good position. We secured the chest tube in place. We closed the other trocar site. We then connected the chest tube to the atrium, and 300 mL of fluid drained out. The patient tolerated the procedure well and was transferred back to recovery room. cc: Mario Davila MD
--- NOTE | 2019-08-11 01:29 | PULMONOLOGY PROGRESS NOTE ---
DATE: 08/10/2019 SUBJECTIVE: The patient was seen in the recovery room following surgery. She is awake. She will answer questions. OBJECTIVE: HEENT: The patient has some orbital bruising, left greater than right, which was not present earlier today. By report, this was related to eye protection and tape during the surgical procedure. Oropharynx appears clear. Neck: Supple. Chest: Reveals decreased breath sounds both lung bases. She has a chest tube in the right hemithorax. No air leak noted. Cardiac: S1, S2. Abdomen: Soft. Extremities: Without edema. IMPRESSION: A 79-year-old with 1. Bronchiectasis. 2. Hydropneumothorax status post chest tube repositioning. 3. Acute hypoxemic respiratory failure. 4. Chronic kidney disease. PLAN: 1. Continue bronchial hygiene. 2. Continue current antibiotic regimen. 3. Continue oxygen. 4. Follow up chest x-ray tomorrow. cc: Kamar Colindres MD
[2019-08-11] MEDS: NORCO-5 PO PRN ×4 (01:30→21:54)
[2019-08-11] MEDS: ATROVENT NEB INH SCH ×4 (03:34→19:42)
[2019-08-11] MEDS: XOPENEX NEB INH SCH ×4 (03:35→19:42)
--- NOTE | 2019-08-11 06:47 | GENERAL SURGERY PROGRESS NOTE ---
DATE: 08/11/2019 SUBJECTIVE: Patient seems to be doing okay. OBJECTIVE: Vital Signs: Patient is currently afebrile. Her vital signs are stable. General: No acute distress. Cardiovascular: Regular rate and rhythm. Lungs: Grossly clear. No air leak noted on right-sided chest tube. Abdomen: Soft, nontender, and nondistended. ASSESSMENT AND PLAN: A 79-year-old female currently postoperative day #1 from right-sided VATS and repositioning of chest tube. Postoperative state at this time. We will follow up with morning chest x-ray to see how the chest tube is working. We did position it superiorly and posteriorly to get it to go to the apex. I did not see anything intrathoracic to explain the continued effusion. We did decorticate slightly to free up the lung. The patient is doing okay. We will keep it to suction until we see morning chest x-ray. cc: Mario Davila MD
[2019-08-11] MEDS: ZOSYN 3.375 GM in NS 50 ML IV SCH ×3 (07:01→18:27)
[2019-08-11 07:19] LABS: BASO# 0.01 X1000 (0.0-0.2); BASO% 0.1 % (0.0-0.8); HEMATOCRIT 32.5 % (37.0-47.0); HEMOGLOBIN 10.9 g/dL (12.0-16.0); LYMPH# 1.27 X1000 (1.2-3.4); LYMPH% 13.3 % (20.5-51.1); MCH 31.1 PG (27-31); MCHC 33.5 g/dL (33-37); MCV 92.6 FL (81-99); MONO# 0.55 X1000 (0.11-0.59); MONO% 5.8 % (1.7-9.3); MPV 9.9 FL (7.4-10.4); NEUT# 7.72 X1000 (1.4-6.5); NEUT% 80.8 % (42.2-75.2); PLT 485 X1000 (130-400); RBC 3.51 XMIL (4.2-5.4); RDW 13.6 % (11.5-14.5); WBC 9.55 X1000 (4.8-10.8)
--- NOTE | 2019-08-11 07:21 | Diag Imaging Result Doc PS360 ---
EXAM: CHEST-PORTABLE INDICATION: dyspnea TECHNIQUE: One view COMPARISON: 08/10/2019 FINDINGS: The position of the chest tube on the right has changed. It may be a new chest tube. The tip projects over the right upper lung zone near the apex. The small pneumothorax has further decreased in size. There is only trace pleural gas at the right lung apex on the current study. Small effusions are probably stable. Interstitial thickening bilaterally is unchanged. No new consolidation is identified. Cardiac silhouette is stable. IMPRESSION: Interval repositioning or exchange of the chest tube with further decrease in the small right pneumothorax. Electronically signed by Michael Bridges 08/11/2019 7:19 AM
[2019-08-11 07:39] LABS: MAGNESIUM 1.9 mg/dL (1.5-2.7); PHOSPHORUS 4.5 mg/dL (2.7-4.5)
[2019-08-11 07:46] LABS: CALCIUM 9.6 mg/dL (8.8-10.2); CREATININE 1.1 mg/dL (0.5-0.9); POTASSIUM 4.7 mmol/L (3.5-5.1)
[2019-08-11] MEDS: MYCOSTATIN SUSP PO SCH ×4 (10:08→21:55)
[2019-08-11] MEDS: PERIDEX MT SCH ×2 (10:08→21:54)
[2019-08-11] MEDS: MIRALAX PO SCH ×2 (10:08→21:55)
[2019-08-11] MEDS: SLOW-FE PO SCH (10:09)
[2019-08-11] MEDS: PULMICORT INH SCH ×2 (11:07→19:41)
[2019-08-11] MEDS: ADVAIR 250/50 DISKUS INH SCH ×2 (11:07→19:44)
[2019-08-11] MEDS: MUCOMYST 20% INH SCH ×2 (11:07→19:41)
[2019-08-11] MEDS: SPIRIVA INH SCH (11:26)
--- NOTE | 2019-08-11 14:56 | PROGRESS NOTE ---
DATE: 08/11/2019 SUBJECTIVE: This patient states that she is feeling better. She is status post right-sided video- assisted thoracic surgery decortication with right-sided chest tube placement, postoperative day #1. X-ray actually looks better today. Pulmonary Department and Surgery Department following this patient closely. OBJECTIVE: Vital Signs: Temperature 98.6 degrees, pulse 85, respiratory rate 16, blood pressure 120/53, oxygen saturation 100% on 3 L of nasal cannula. HEENT: Head normocephalic, no trauma. PERRLA. Neck: Supple. No JVD. No masses. Central trachea. Chest: Decreased breath sounds at the right base with some crepitus and scattered crackles. Abdomen: Soft, nontender, nondistended. No hepatosplenomegaly. Extremities: No edema, no clubbing, no cyanosis. Neurological examination: The patient is alert. She is oriented x3. No focal deficits. LABORATORY: WBC 9.5, hemoglobin 10.9, hematocrit 32.5, platelets 485. Sodium 133, potassium 4.7, chloride 94, bicarbonate 25. BUN 25, creatinine 1.1, glucose 123, calcium 9.6. ASSESSMENT AND PLAN: 1. Acute spontaneous hydropneumothorax of the right lung. She had a chest tube placed 7 days ago, but yesterday she went to the operating room and had a video-assisted thoracoscopy surgery, decortication and right-sided chest tube placement, postoperative day #1. She seems to be better. She is not complaining of pain at this moment. The x-ray looks good; actually, I think it is better than yesterday. We will continue with the same management. Surgery Department on board. 2. Chronic obstructive pulmonary disease, not in exacerbation. Continue with same management. 3. Hyponatremia, stable. 4. Chronic kidney disease stage III, stable. This is her baseline. 5. Recent treatment for pneumonia. CT scan of the chest done on 08/03/2019 showed some infiltrates compatible with atypical pneumonia and/or pulmonary edema. I do believe this is more related to pulmonary edema, but we will continue with same management. She is getting antibiotics. 6. History of streptococcal pneumonia bacteremia. Apparently she has been on long-term antibiotics at home for this problem. I will discuss the case with Infectious Disease Department once the patient is really close to being discharged. 7. Anemia. Continue with same management. 8. Deep vein thrombosis prophylaxis with sequential compression devices. 9. Constipation. Continue with MiraLAX. cc: Jamie Hebert MD
--- NOTE | 2019-08-11 22:09 | PULMONOLOGY PROGRESS NOTE ---
DATE: 08/11/2019 SUBJECTIVE: The patient is awake and alert. She has a relatively good cough effort despite chest tube repositioning yesterday. OBJECTIVE: Vital signs: The patient has been afebrile for the last 24 hours. Blood pressure 120/53, heart rate 85, respiratory rate 16, oxygen saturation 100% on 3 L per nasal cannula. HEENT: Pupils are equal and reactive. Oropharynx appears clear. Neck: Supple. Chest: Reveals crackles at the right base. She has a small air leak with cough. Cardiac Exam: S1, S2. Abdomen: Soft. Extremities: Without edema. DIAGNOSTIC DATA: Chest x-ray reveals near resolution of the small pneumothorax. White blood count 9.55, hemoglobin 10.9, platelet count 485,000. Sodium 133, potassium 4.7, chloride 94, bicarbonate 25, BUN 25, creatinine 1.1. IMPRESSION: A 79-year-old with: 1. Bronchiectasis with exacerbation. 2. Hydropneumothorax status post chest tube repositioning. 3. Acute hypoxemic respiratory failure. 4. Chronic kidney disease. PLAN: 1. Continue to encourage bronchial hygiene. 2. Continue chest tube. She does have a small air leak noted with cough, although she does have 1 drainage port in the subcutaneous tissue. 3. Continue oxygen therapy. 4. Daily chest x-rays. cc: Kamar Colindres MD
[2019-08-12] MEDS: ZOSYN 3.375 GM in NS 50 ML IV SCH ×4 (01:16→19:34)
[2019-08-12] MEDS: XOPENEX NEB INH SCH ×6 (03:03→22:51)
[2019-08-12] MEDS: ATROVENT NEB INH SCH ×6 (03:03→22:51)
--- NOTE | 2019-08-12 06:40 | EKG Report ---
Test Performed on : 08/12/2019 06:33:45 AM Test Reason : Chest Pain Blood Pressure : / mmHG Vent. Rate : 079 BPM Atrial Rate : 102 BPM P-R Int : 000 ms QRS Dur : 086 ms QT Int : 378 ms P-R-T Axes : 000 095 -68 degrees QTc Int : 433 ms Atrial fibrillation. with premature ventricular or aberrantly conducted complexes. Rightward axis Low voltage QRS Nonspecific T wave abnormality Abnormal ECG When compared with ECG of 04-AUG-2019 07:18, No significant change was found Confirmed by Anastasiya HERNANDEZ, Avelino Heredia ([id number]) on 08/15/2019 1:01:11 PM
[2019-08-12 06:56] LABS: BASO# 0.04 X1000 (0.0-0.2); BASO% 0.3 % (0.0-0.8); EOS# 0.21 X1000 (0.0-0.7); EOS% 1.8 % (0.0-10.0); HEMATOCRIT 31.9 % (37.0-47.0); HEMOGLOBIN 10.7 g/dL (12.0-16.0); IMM GRAN# 0.02 X1000 (0.0-0.04); IMM GRAN% 0.2 % (0.0-0.5); LYMPH# 1.87 X1000 (1.2-3.4); LYMPH% 15.6 % (20.5-51.1); MCH 31.2 PG (27-31); MCHC 33.5 g/dL (33-37); MONO# 0.92 X1000 (0.11-0.59); MONO% 7.7 % (1.7-9.3); MPV 9.3 FL (7.4-10.4); NEUT# 8.89 X1000 (1.4-6.5); NEUT% 74.4 % (42.2-75.2); PLT 443 X1000 (130-400); RBC 3.43 XMIL (4.2-5.4); RDW 13.6 % (11.5-14.5); WBC 11.95 X1000 (4.8-10.8)
[2019-08-12 07:15] LABS: CALCIUM 8.9 mg/dL (8.8-10.2); CREATININE 1.3 mg/dL (0.5-0.9); POTASSIUM 4.4 mmol/L (3.5-5.1)
--- NOTE | 2019-08-12 07:33 | Diag Imaging Result Doc PS360 ---
EXAM: CHEST-PORTABLE 08/12/2019 HISTORY: dyspnea TECHNIQUE: AP portable at 0614 COMMENT: There are bilateral pleural effusions. There is a right chest tube. There is a small residual apical pneumothorax on the right which has not changed significantly since the previous study. There are bilateral pleural effusions. There is interstitial opacity throughout both lungs particularly in the right lower lobe. The latter is slightly worse than on 08/11/2019. IMPRESSION: Small right pneumothorax. Interstitial pulmonary edema plus minus pneumonia with pleural effusions. Electronically signed by Neno Maldonado 08/12/2019 7:30 AM
[2019-08-12] MEDS: PERIDEX MT SCH ×2 (08:02→20:40)
[2019-08-12] MEDS: MYCOSTATIN SUSP PO SCH ×4 (08:03→20:40)
[2019-08-12] MEDS: MIRALAX PO SCH ×2 (08:03→20:40)
[2019-08-12] MEDS: SLOW-FE PO SCH (08:05)
[2019-08-12] MEDS: NORCO-5 PO PRN (08:05)
[2019-08-12] MEDS: MUCOMYST 20% INH SCH ×2 (11:05→20:35)
[2019-08-12] MEDS: PULMICORT INH SCH ×2 (11:05→20:36)
[2019-08-12] MEDS: ADVAIR 250/50 DISKUS INH SCH ×2 (11:08→20:35)
[2019-08-12] MEDS: SPIRIVA INH SCH (11:08)
--- NOTE | 2019-08-12 11:36 | PROGRESS NOTE ---
DATE: 08/12/2019 SUBJECTIVE: This patient has been complaining of chest pain, mostly with movement. X-ray seems to be about the same compared with yesterday. Pulmonary Department and Surgery Department on board. OBJECTIVE: Vital Signs: Temperature 97.8 degrees, pulse 85, respiratory rate 16, blood pressure 132/58, oxygen saturation 99 on 2 L of nasal cannula. HEENT: Head normocephalic, no trauma. PERRLA. Neck: Supple. No JVD. No masses. Central trachea. Chest: Decreased breath sounds at the right base with some crepitus and scattered crackles. Abdomen: Soft, nontender, nondistended. No hepatosplenomegaly. Extremities: No edema, no clubbing, no cyanosis. Neurological examination: The patient is alert. She is oriented x3. No focal deficits. LABORATORY: WBC 11.9, hemoglobin 10.7, hematocrit 31.9, platelets 443. Sodium 134, potassium 4.4, chloride 95, bicarbonate 25. BUN 28, creatinine 1.3, glucose 113, calcium 8.9. ASSESSMENT AND PLAN: 1. Acute spontaneous hydropneumothorax of the right lung. She had a chest tube placed 8 days ago, but 2 days ago she went to the operating room and had a video-assisted thoracoscopy surgery, decortication and right-sided chest tube placement. Postoperative day #2, she seems to be still draining some fluid. She is complaining of pain at this moment. X-ray for me looks about the same compared with yesterday. We will continue with the same management. Surgery Department and Pulmonary Department on board. 2. Chronic obstructive pulmonary disease, not in exacerbation. We will continue with same management. 3. Hyponatremia, stable. 4. Chronic kidney disease stage III, stable. This is her baseline. 5. Recent treatment for pneumonia. CT scan of the chest done on 08/03/2019 shows some infiltrates compatible with atypical pneumonia and/or pulmonary edema. 6. History of streptococcal pneumonia bacteremia. Apparently she has been on long-term antibiotics at home for this problem. I will discuss the case with Infectious Disease Department once the patient is really close to being discharged. 7. Anemia. Continue with the same management. 8. Deep vein thrombosis prophylaxis with sequential compression devices. 9. Constipation. Continue with MiraLAX. cc: Jamie Hebert MD
--- NOTE | 2019-08-12 12:06 | GENERAL SURGERY PROGRESS NOTE ---
DATE: 08/12/2019 SUBJECTIVE: The patient denies shortness of breath. OBJECTIVE: General: She is awake, alert, oriented x3. No acute distress. Vital Signs: She is afebrile. Vital signs are stable. Respiratory: Clear bilateral breath sounds except for some mild crackles in the right base. The chest tube only had 10 mL of serosanguineous fluid. I do not detect an air leak with cough today. IMAGING: Chest x-ray shows small right pneumothorax, pulmonary edema and bilateral pleural effusions. ASSESSMENT AND PLAN: A 79-year-old female with right spontaneous hydropneumothorax status post chest tube placement and repositioning with thoracoscopy. We will continue the chest tube to suction for now and repeat chest x-ray in the morning. Her chest tube is noted to have 1 of the drain holes outside the chest. cc: Mark Walden MD
--- NOTE | 2019-08-12 14:39 | PULMONOLOGY PROGRESS NOTE ---
DATE: 08/12/2019 SUBJECTIVE: The patient is awake, alert, and conversant. She denies sputum production. She is without specific complaints today. OBJECTIVE: Vital Signs: The patient has been afebrile for the last 24 hours. Blood pressure is 123/48, heart rate 90, respiratory rate 15, oxygen saturation 99% on 2 L per nasal cannula. HEENT: Pupils are equal and reactive. Oropharynx is clear. Neck: Supple. Chest: Reveals crackles in the right base. No significant rhonchi or wheezing. Chest tube in position. No air leak noted with cough. Cardiac: S1-S2. Abdomen: Abdomen is soft. Extremities: Extremities without edema. LABORATORIES: Chest x-ray reveals tiny right apical pneumothorax. IMPRESSION: 1. Bronchiectasis with resolving exacerbation. 2. Hydropneumothorax status post chest tube placement and subsequent repositioning. 3. Acute hypoxemic respiratory failure. 4. Chronic kidney disease. PLAN: 1. Continue bronchial hygiene. 2. Chest tube management per General Surgery. 3. Continue oxygen therapy. cc: Kamar Colindres MD
[2019-08-13] MEDS: NORCO-5 PO PRN ×2 (00:26→21:11)
[2019-08-13] MEDS: ZOSYN 3.375 GM in NS 50 ML IV SCH ×4 (01:30→18:28)
[2019-08-13] MEDS: ATROVENT NEB INH SCH ×5 (03:23→22:48)
[2019-08-13] MEDS: XOPENEX NEB INH SCH ×5 (03:24→22:48)
--- NOTE | 2019-08-13 07:12 | Diag Imaging Result Doc PS360 ---
EXAM: CHEST-PORTABLE 08/13/2019 HISTORY: ptx TECHNIQUE: AP portable at 0556 COMMENT: There is a right chest tube. There is a tiny residual pneumothorax on the right. There is some pleural thickening and/or fluid. There is soft tissue emphysema laterally over the lower right chest. There is also a left pleural effusion. This may be slightly smaller than on 08/12/2019. There is diffuse ill-defined interstitial opacity with some alveolar opacification in the lower lobes. This was also present previously. IMPRESSION: Stable right pneumothorax. Bilateral pleural effusions. Pulmonary edema and/or pneumonia. Electronically signed by Neno Maldonado 08/13/2019 7:09 AM
[2019-08-13] MEDS: MYCOSTATIN SUSP PO SCH ×4 (09:55→21:11)
[2019-08-13] MEDS: PERIDEX MT SCH ×2 (09:55→21:10)
[2019-08-13] MEDS: SLOW-FE PO SCH (09:56)
[2019-08-13] MEDS: MIRALAX PO SCH ×2 (10:02→21:13)
[2019-08-13] MEDS: SPIRIVA INH SCH (11:01)
[2019-08-13] MEDS: ADVAIR 250/50 DISKUS INH SCH ×2 (11:02→19:55)
[2019-08-13] MEDS: PULMICORT INH SCH ×2 (11:02→19:56)
[2019-08-13] MEDS: MUCOMYST 20% INH SCH ×2 (11:02→21:55)
--- NOTE | 2019-08-13 12:23 | PROGRESS NOTE ---
DATE: 08/13/2019 SUBJECTIVE: No big changes compared with yesterday. X-ray for me looks about the same. OBJECTIVE: Vital Signs: Temperature 97.7 degrees, pulse 84, respiratory rate 18, blood pressure 130/60, oxygen saturation 98 on nasal cannula. HEENT: Head normocephalic. No trauma. PERRLA. Neck: Supple. No JVD. No masses. Central trachea. Chest: Decreased breath sounds at the right base with some crepitus. Thoracic tube in place. Abdomen: Soft, nontender, nondistended. No hepatosplenomegaly. Extremities: No edema, no clubbing, no cyanosis. Neurological Examination: The patient is alert. She is oriented. She is following commands. No deficits. Laboratory: WBC 11.9, hemoglobin 10.7, hematocrit 21.9, platelets 443,000. Sodium 134, potassium 4.4, chloride 95, bicarbonate 25, BUN 28, creatinine 1.3, glucose 113. This lab work is from yesterday. I will repeat the lab work tomorrow. ASSESSMENT AND PLAN: 1. Acute spontaneous hydropneumothorax of the right lung. She had a chest tube placed 9 days ago and 3 days ago, she went to the operating room and had a video-assisted thoracoscopy surgery, decortication of the right-sided chest tube placement, postoperative day #3. She seems to be stable. Surgery department and pulmonary department following this patient closely. 2. Chronic obstructive pulmonary disease, not in exacerbation. 3. Hyponatremia, stable. 4. Chronic kidney disease stage 3, stable. This is her baseline. 5. Recent treatment for pneumonia. CT scan of the chest done on 08/03/2019 shows some infiltrates compatible with atypical pneumonia and/or pulmonary edema. We will continue with the same management for now. 6. History of streptococcal pneumonia bacteremia. Apparently, she has been on long-term antibiotics at home for this problem. I will discuss the case with the infectious disease doctor once this patient is really close to being discharged. 7. Anemia. Continue with the same management. 8. Deep vein thrombosis prophylaxis with sequential compression devices. 9. Constipation. Continue with MiraLAX. cc: Jamie Hebert MD
--- NOTE | 2019-08-13 13:39 | GENERAL SURGERY PROGRESS NOTE ---
DATE: 08/13/2019 SUBJECTIVE: The patient feels better today. No chest pain or shortness of breath. OBJECTIVE: She is afebrile. Vital signs are stable.General: She is awake, alert, oriented x3. No acute distress. CV: Regular rate and rhythm. Respiratory: Bilateral equal breath sounds. No increased work of breathing. The chest tube has no air leak and had 90 mL of serosanguineous fluid out. IMAGING: Chest x-ray shows stable tiny right pneumothorax and small bilateral pleural effusions. ASSESSMENT AND PLAN: A 79-year-old female with right spontaneous hydropneumothorax status post chest tube placement. She is stable. We will change the chest tube to water seal today and reassess tomorrow for possible removal. cc: Mark Walden MD
--- NOTE | 2019-08-13 17:52 | PULMONOLOGY PROGRESS NOTE ---
DATE: 08/13/2019 SUBJECTIVE: The patient is awake, alert, and conversant. She denies shortness of breath. She reports minimal sputum production. OBJECTIVE: Vital Signs: The patient has been afebrile for the last 24 hours. Blood pressure 124/64, heart rate 76, respiratory rate 16, oxygen saturation 97% on nasal cannula. HEENT: Pupils are equal and reactive. Oropharynx appears clear. Neck: Is supple. Chest: Reveals crackles in both lung bases. Cardiac exam: S1-S2. Abdomen: Is soft. Extremities: Without edema. LABORATORIES: Chest x-ray reveals a tiny pneumothorax at the right apex. There is also a tiny left-sided effusion. LABORATORIES: No new chemistries or CBC today. IMPRESSION: A 79-year-old with 1. Bronchiectasis and exacerbation. 2. Hydropneumothorax with tiny pneumothorax following chest tube repositioning. 3. Acute hypoxemic respiratory failure. DISCUSSION: A 79-year-old with problems outlined above. She has a tiny pneumothorax present, but has no air leak with cough. PLAN: 1. Continue bronchial hygiene. 2. Chest tube management per General Surgery. 3. Wean oxygen as tolerated. cc: Kamar Colindres MD
[2019-08-14] MEDS: ZOSYN 3.375 GM in NS 50 ML IV SCH ×4 (00:04→18:27)
[2019-08-14] MEDS: ATROVENT NEB INH SCH ×4 (03:37→22:14)
[2019-08-14] MEDS: XOPENEX NEB INH SCH ×4 (03:37→22:14)
--- NOTE | 2019-08-14 05:56 | GENERAL SURGERY PROGRESS NOTE ---
DATE: 08/14/2019 SUBJECTIVE: Patient seems to be doing okay. Reviewed chest x-rays from the weekend. She has been relatively stable with only a small tiny apical pneumothorax. Chest tube output has decreased dramatically over the last several days, and is less than 100 a day. OBJECTIVE: Vital Signs: Patient is currently afebrile. Her vital signs are stable. General: No acute distress. Cardiovascular: Regular rate and rhythm. Lungs: No air leak noted in chest tube. Coarse sounds noted bilaterally. Abdomen: Soft, nontender, and nondistended. ASSESSMENT AND PLAN: A 79-year-old female with spontaneous right-sided hydropneumothorax. Right-sided hydropneumothorax. At this time, we will follow up a chest x-ray. If her chest x-ray appears stable, I think we could probably remove her chest tube today. We will see what the chest x-ray shows. cc: Mario Davila MD
--- NOTE | 2019-08-14 06:50 | Diag Imaging Result Doc PS360 ---
EXAM: CHEST-PORTABLE HISTORY: ptx TECHNIQUE: Portable chest single view COMPARISON: 08/13/2019 FINDINGS: There is a right-sided chest tube with a small right-sided pneumothorax. Increased interstitial markings throughout both lungs with mild prominence to the heart. The small bilateral pleural effusions. The overall appearance is similar to the prior exam. IMPRESSION: Stable chest. Electronically signed by Anuel Phillips 08/14/2019 6:48 AM
[2019-08-14 08:44] LABS: CALCIUM 9.3 mg/dL (8.8-10.2); CREATININE 1.1 mg/dL (0.5-0.9); POTASSIUM 4.2 mmol/L (3.5-5.1)
[2019-08-14] MEDS: MYCOSTATIN SUSP PO SCH ×4 (10:27→21:04)
[2019-08-14] MEDS: PERIDEX MT SCH ×2 (10:27→21:04)
[2019-08-14] MEDS: MIRALAX PO SCH ×2 (10:29→21:04)
[2019-08-14] MEDS: ADVAIR 250/50 DISKUS INH SCH ×2 (11:41→22:14)
[2019-08-14] MEDS: PULMICORT INH SCH ×2 (11:43→22:14)
[2019-08-14] MEDS: MUCOMYST 20% INH SCH ×2 (11:43→22:14)
--- NOTE | 2019-08-14 11:59 | PROVIDER PROGRESS NOTE ---
Progress Note Pulmonary Additional Note. Pulmonary consult was cancelled. Discussed with Dr. Stephens
--- NOTE | 2019-08-14 12:22 | PROGRESS NOTE ---
DATE: 08/14/2019 SUBJECTIVE: Her chest tube has been removed today. We will do a new x-ray in the afternoon. Probably, this patient will be discharged in the next 24 hours if everything is okay. She feels a little bit short of breath. OBJECTIVE: Vital Signs: Temperature 97.9 degrees, pulse 93, respiratory rate 20, blood pressure 136/63, oxygen saturation 99 on 2 L of nasal cannula. HEENT: Head normocephalic. No trauma. PERRLA. Neck: Supple. No JVD. No masses. Central trachea. Chest: She does have some crepitus bilaterally, mostly at the bases. Thoracic tube has been removed. Abdomen: Soft, nontender, nondistended. No hepatosplenomegaly. Extremities: No edema, no clubbing, no cyanosis. Decreased muscle mass. Neurological: The patient is alert. She is oriented. She is following commands. No deficits. LABORATORY DATA: Sodium 136, potassium 4.2, chloride 98, bicarbonate 26, BUN 24, creatinine 1.1, glucose 99, calcium 9.3. ASSESSMENT AND PLAN: 1. Acute spontaneous hydropneumothorax of the right lung. She had a chest tube placed 10 days ago, and then it has been repositioned 4 days ago. She went to the operating room and had a video-assisted thoracoscopy surgery, decortication of the right-sided chest tube placement, postoperative day #4. She seems to be stable. Chest tube has been removed today. Will do a chest x-ray in the afternoon to make sure that she is not having more issues. Surgery Department and Pulmonary Department on board. Probably, this patient will be discharged tomorrow morning if she is doing fine. 2. Chronic obstructive pulmonary disease, not in exacerbation. 3. Hyponatremia, stable. 4. Chronic kidney disease stage 3, stable. This is her baseline. 5. Recent treatment for pneumonia. CT scan of the chest done on 08/03/2019 showed some infiltrate compatible with atypical pneumonia and/or pulmonary edema. Will continue with the same management for now. 6. History of streptococcal pneumonia bacteremia. Apparently, she has been on long-term antibiotics at home for this problem. I will discuss the case with the Infectious Disease doctor once the patient is really close to being discharged, probably today. 7. Anemia. Continue home medication. 8. Deep vein thrombosis prophylaxis with sequential compression devices. 9. Constipation. Continue with MiraLAX. cc: Jamie Hebert MD
[2019-08-14] MEDS: SLOW-FE PO SCH (13:28)
--- NOTE | 2019-08-14 13:43 | Diag Imaging Result Doc PS360 ---
EXAM: CHEST-PORTABLE HISTORY: chest tube removal TECHNIQUE: Chest single view COMPARISON: 6:14 AM FINDINGS: There is a small right-sided hydropneumothorax. Slight interval increase in size. It now measures 1.7 cm apically. The right-sided chest tube has been removed. No other interval change. IMPRESSION: Removal of the right chest tube with slight increase in the size of the hydropneumothorax. Electronically signed by Anuel Phillips 08/14/2019 1:41 PM
[2019-08-14] MEDS: SPIRIVA INH SCH (15:45)
--- NOTE | 2019-08-14 20:00 | PULMONOLOGY PROGRESS NOTE ---
DATE: 08/14/2019 SUBJECTIVE: The patient is awake, alert, and conversant. She has had her chest tube removed. She has been ambulating some in her room. She denies shortness of breath. OBJECTIVE: Vital Signs: The patient has been afebrile for the last 24 hours. Blood pressure 134/73, heart rate 90, respiratory rate 18, oxygen saturation 99% on 2 L per nasal cannula. HEENT: Pupils are equal and reactive. Oropharynx is clear. Neck: Supple. Chest: Occasional crackles in the lung bases. Good air flow bilaterally. Cardiac: S1, S2. Abdomen: Soft. Extremities: Without edema. LABORATORIES: Chest x-ray this afternoon following chest tube removal reveals slight increase in small right-sided hydropneumothorax. IMPRESSION: A 79-year-old with: 1. Bronchiectasis with exacerbation. 2. Hydropneumothorax. 3. Acute hypoxemic respiratory failure. DISCUSSION: A 79-year-old with problems outlined above. Clinically, she is doing well following chest tube removal, but she does have a small/slightly increased size in pneumothorax. PLAN: 1. Continue bronchial hygiene. 2. Followup chest x-ray tomorrow, or sooner if she develops respiratory distress. cc: Kamar Colindres MD
[2019-08-15] MEDS: ZOSYN 3.375 GM in NS 50 ML IV SCH ×2 (02:40→06:37)
[2019-08-15] MEDS: XOPENEX NEB INH SCH ×2 (03:44→08:06)
[2019-08-15] MEDS: ATROVENT NEB INH SCH ×2 (03:44→08:05)
[2019-08-15 07:32] VITALS: BP 119/60
--- NOTE | 2019-08-15 08:00 | GENERAL SURGERY PROGRESS NOTE ---
DATE: 08/15/2019 SUBJECTIVE: Patient seems to be doing okay. She did get a small increase in the size of pneumothorax after the chest tube pull, but she has been doing fine. She has been breathing okay. OBJECTIVE: Vital Signs: Patient is currently afebrile. Her vital signs are stable. General: No acute distress. Cardiovascular: Regular rate and rhythm. Lungs: No increased labored breathing. Breath sounds noted bilaterally. Abdomen: Soft, nontender, and nondistended. ASSESSMENT AND PLAN: A 79-year-old female with a right-sided hydropneumothorax. Right-sided hydropneumothorax. At this time, chest tube has been removed. She has a small apical pneumothorax. She has been hemodynamically stable since the chest tube was pulled. She has not had any shortness of breath. I think she can probably be discharged home today if okay with other providers. cc: Mario Davila MD
[2019-08-15] MEDS: SPIRIVA INH SCH (08:05)
[2019-08-15] MEDS: MUCOMYST 20% INH SCH (08:05)
[2019-08-15] MEDS: PULMICORT INH SCH (08:05)
[2019-08-15] MEDS: ADVAIR 250/50 DISKUS INH SCH (08:05)
--- NOTE | 2019-08-15 08:54 | Diag Imaging Result Doc PS360 ---
EXAM: CHEST-2 VIEWS 08/15/2019 HISTORY: hypoxia TECHNIQUE: PA and lateral chest COMMENT: There are bilateral pleural effusions. The basilar opacities bilaterally have improved slightly since 08/14/2019, particularly in the left lower lobe. IMPRESSION: Improved pulmonary edema versus pneumonia. Bilateral pleural effusions. Electronically signed by Neno Maldonado 08/15/2019 8:51 AM
--- NOTE | 2019-08-15 21:02 | PULMONOLOGY PROGRESS NOTE ---
DATE: 08/15/2019 SUBJECTIVE: The patient is awake, alert, and conversant. She reports minimal sputum production. She denies chest pain or shortness of breath. OBJECTIVE: Vital Signs: The patient has been afebrile for the last 24 hours. Blood pressure 119/60, heart rate 79, respiratory rate 13, oxygen saturation 99% on room air. HEENT: Pupils are equal and reactive. Oropharynx appears clear. Neck: Is supple. Chest: Reveals decreased breath sounds at both lung bases. Cardiac exam: S1, S2. Abdomen: Is soft. Extremities: Without edema. LABORATORIES: Chest x-ray reveals bibasilar infiltrates, which have continued to decline. She has small effusions which are stable. She has a small right apical pneumothorax, which is stable. IMPRESSION: A 79-year-old with 1. Exacerbation of bronchiectasis. 2. Pneumothorax, status post chest tube placement with subsequent removal. 3. Hypoxemic respiratory failure, which is resolving. PLAN: 1. Anticipate discharge home today. 2. The patient is to keep scheduled appointment with Dr. Mark Allen this Wednesday. 3. She was encouraged to continue nebulizer regimen 3 times a day for bronchial hygiene. 4. The patient was encouraged to begin an exercise program. cc: Kamar Colindres MD
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
== END 2019-08-15 11:32 | disposition home or self-care (01) | DRG 163 ==
LOC: ED 10:39 → SURHOLD 15:43 → 4N 16:34
PROVIDERS: ATTEND Internal Medicine
PROC: GE.THRS (2019-08-10 15:58)